=== PATIENT | female | born 1975 | race Caucasian/White ===

== ENCOUNTER → 2017-12-23 08:24 | Outpatient (POV) | payer MEDICAID, SELFPAY | PROVIDERS: PCP Nurse Practitioner Family; Visit Provider Dentist | DX: Z00.00 Encounter for general adult medical examination without abnormal findings (principal) ==

== ENCOUNTER → 2018-02-18 14:13 | Outpatient (CLI) | payer MEDICAID, SELFPAY ==
--- NOTE | 2018-02-18 14:17 | XR_ITS ---
EXAM: XR cervical spine 5V HISTORY: Neck pain ITS.REASON: pain ORDERING PHYSICIAN: Sallie Haney PATIENT AGE: 42 years COMPARISON: FINDINGS: Normal alignment. No fracture or dislocation. No lytic or blastic change. No significant degenerative change. The disc spaces are preserved. There is minimal mid cervical curvature convex right with slight head tilt toward the left. No evidence of cervical rib. IMPRESSION: Minimal mid cervical curvature convex right could be seen with mild muscle spasm. Otherwise negative cervical spine
== END ==
PROVIDERS: PCP Emergency Medicine; Visit Provider Nurse Practitioner Family
DX: M54.2 Cervicalgia (principal)
CPT/HCPCS: 72050

== ENCOUNTER → 2018-05-03 15:51 | Outpatient (CLI) | payer MEDICAID, SELFPAY ==
[2018-05-03 17:15] LABS: Basophils % 0.1 % (0.1-2.0); Eosinophils % 0.8 % (0.1-12.0); Hematocrit 36.1 % (37.0-47.0); Hemoglobin 11.1 g/dL (12.2-16.2); Lymphocytes # 1.6 K/mm3 (0.7-4.5); Lymphocytes % 35.1 K/mm3 (10-50); Mean Corpuscular HGB Conc 30.8 g/dL (31.8-35.4); Mean Corpuscular Hemoglobin 26.2 pg (27.0-31.2); Mean Corpuscular Volume 85.1 fl (81-99); Mean Platelet Volume 7.7 fl (7.4-10.4); Monocytes # 0.2 K/mm3 (0.1-1.0); Monocytes % 3.3 % (1.7-9.3); Neutrophils # 2.8 K/mm3 (1.8-7.8); Neutrophils % 60.7 % (37.0-80.0); Platelet Count 371 K/mm3 (142-424); Red Blood Count 4.24 M/mm3 (4.20-5.40); Red Cell Distribution Width 12.8 % (11.5-17.5); White Blood Count 4.6 K/mm3 (4.8-10.8)
[2018-05-07 18:28] LABS: RA Latex Turbid. <10.0 IU/mL (0.0-13.9)
[2018-05-09 11:13] LABS: Anti-Jo-1 <0.2 AI (0.0-0.9); Anti-Smith Antibody <0.2 AI (0.0-0.9); Antichromatin Antibodies <0.2 AI (0.0-0.9); Antiscleroderma-70 Antibodies <0.2 AI (0.0-0.9); RNP Antibodies <0.2 AI (0.0-0.9); Sjogren's Anti-SS-A <0.2 AI (0.0-0.9); Sjogren's Anti-SS-B <0.2 AI (0.0-0.9)
[2018-05-11 06:14] LABS: Anti-Centromere B Antibodies <0.2 AI (0.0-0.9); Anti-Cyclic Citrullinated Pept 5 units (0-19); Anti-DNA (DS) Ab Qn 2 IU/mL (0-9)
== END ==
PROVIDERS: Visit Provider Physician Assistant
DX: M89.8X9 Other specified disorders of bone, unspecified site (principal); R53.83 Other fatigue; L65.9 Nonscarring hair loss, unspecified
CPT/HCPCS: 36415; 85025; 86200; 86225; 86235; 86431

== ENCOUNTER → 2018-05-10 12:35 | Outpatient (CLI) | payer MEDICAID, SELFPAY ==
[2018-05-10 13:46] LABS: Erythrocyte Sedimentation Rate 24 mm/hr (0-20)
[2018-05-10 14:20] LABS: Alanine Aminotransferase 19 U/L (12-78); Albumin Level 3.4 gm/dL (3.4-5.0); Albumin/Globulin Ratio 1.1 (1.1-1.8); Alkaline Phosphatase 68 U/L (46-116); Anion Gap 13.1 mEq/L (5-15); Aspartate Amino Transferase 13 U/L (15-37); Bilirubin,Total 0.3 mg/dL (0.2-1.0); Blood Urea Nitrogen 9 mg/dL (7-18); C-Reactive Protein 1.3 mg/L (0.0-0.9); Calcium 8.3 mg/dL (8.5-10.1); Carbon Dioxide 28 mmol/L (21.0-32.0); Chloride 105 mmol/L (98-107); Creatinine,Serum 0.68 mg/dL (0.55-1.02); Estimated Glomerular Filt Rate 94 ml/min (>60); GFR (African American) 114 ML/MIN (>60); Globulin 3.2 gm/dl (1.3-3.2); Glucose 82 mg/dL (74-106); Potassium 4.1 mmoL/L (3.5-5.1); Sodium 142 mmol/L (136-145); Total Protein,Serum 6.6 gm/dL (6.4-8.2)
[2018-05-11 17:29] LABS: PTT-LA 34.3 sec (0.0-51.9); dRVVT 40.7 sec (0.0-47.0)
[2018-05-13 06:33] LABS: Lupus Reflex Interpretation Comment: (.)
== END ==
PROVIDERS: Visit Provider Physician Assistant
DX: M89.8X9 Other specified disorders of bone, unspecified site (principal); L65.9 Nonscarring hair loss, unspecified; R53.83 Other fatigue
CPT/HCPCS: 36415; 80053; 85613; 85651; 86140

== ENCOUNTER → 2018-05-31 15:38 | Outpatient (REF) | payer MEDICAID, SELFPAY ==
[2018-05-31 18:15] LABS: Erythrocyte Sedimentation Rate 17 mm/hr (0-20)
[2018-05-31 18:46] LABS: C-Reactive Protein 0.4 mg/L (0.0-0.9)
[2018-06-02 10:13] LABS: RA Latex Turbid. <10.0 IU/mL (0.0-13.9)
[2018-06-02 14:16] LABS: Anti-Jo-1 <0.2 AI (0.0-0.9); Anti-Smith Antibody <0.2 AI (0.0-0.9); Antichromatin Antibodies <0.2 AI (0.0-0.9); Antiscleroderma-70 Antibodies <0.2 AI (0.0-0.9); RNP Antibodies <0.2 AI (0.0-0.9); Sjogren's Anti-SS-A <0.2 AI (0.0-0.9); Sjogren's Anti-SS-B <0.2 AI (0.0-0.9)
[2018-06-03 09:09] LABS: Anti-Centromere B Antibodies <0.2 AI (0.0-0.9); Anti-DNA (DS) Ab Qn 2 IU/mL (0-9)
== END ==
LOC: LAB 15:38
PROVIDERS: Visit Provider Physician Assistant
DX: G89.29 Other chronic pain (principal); M51.36 Other intervertebral disc degeneration, lumbar region; M54.16 Radiculopathy, lumbar region; Z98.1 Arthrodesis status
CPT/HCPCS: 85651; 86140; 86225; 86235; 86431

== ENCOUNTER → 2018-08-29 14:56 | Outpatient (CLI) | payer MEDICAID, SELFPAY ==
--- NOTE | 2018-08-29 14:58 | US_ITS ---
US transvaginal HISTORY: Dysfunctional uterine bleeding ITS.REASON: US for Heavy Bleeding ORDERING PHYSICIAN: John Garcia MD PATIENT AGE: 43 years Comparison: None FINDINGS: The uterus is 8.4 x 4 x 4.5 cm with a combined endometrial thickness of 2 mm. There are nabothian cysts present. There is an area of slight increased echogenicity along the posterior aspect of the body the uterus at 1 cm and may be due to small fibroid. The right ovary is 27 x 23 mm. The left ovary is 22 x 13 mm. There are small bilateral ovarian follicles. No cul-de-sac fluid. IMPRESSION: Small fibroid within the uterus otherwise negative pelvic ultrasound
== END ==
PROVIDERS: PCP Physician Assistant; Visit Provider Nurse Practitioner Obstetrics & Gynecology
DX: N92.0 Excessive and frequent menstruation with regular cycle (principal); N93.9 Abnormal uterine and vaginal bleeding, unspecified
CPT/HCPCS: 76830

== ENCOUNTER → 2018-09-01 18:08 | Outpatient (CLI) | payer MEDICAID, SELFPAY ==
[2018-09-01 19:13] LABS: Basophils % 0.4 % (0.1-2.0); Eosinophils # 0.1 K/mm3 (0.0-0.4); Hemoglobin 12.1 g/dL (12.2-16.2); Lymphocytes # 1.7 K/mm3 (0.7-4.5); Lymphocytes % 46.6 % (10-50); Mean Corpuscular HGB Conc 32.7 g/dL (31.8-35.4); Mean Corpuscular Hemoglobin 28.4 pg (27.0-31.2); Mean Corpuscular Volume 86.9 fl (81-99); Mean Platelet Volume 7.4 fl (7.4-10.4); Monocytes # 0.1 K/mm3 (0.1-1.0); Monocytes % 3.8 % (1.7-9.3); Neutrophils # 1.7 K/mm3 (1.8-7.8); Neutrophils % 47.1 % (37.0-80.0); Platelet Count 318 K/mm3 (142-424); Red Blood Count 4.26 M/mm3 (4.20-5.40); Red Cell Distribution Width 13.4 % (11.5-17.5); White Blood Count 3.7 K/mm3 (4.8-10.8)
[2018-09-01 20:51] LABS: Alanine Aminotransferase 21 U/L (12-78); Albumin Level 3.7 gm/dL (3.4-5.0); Albumin/Globulin Ratio 1.2 (1.1-1.8); Alkaline Phosphatase 64 U/L (46-116); Anion Gap 14.1 mEq/L (5-15); Aspartate Amino Transferase 14 U/L (15-37); Bilirubin,Total 0.5 mg/dL (0.2-1.0); Blood Urea Nitrogen 13 mg/dL (7-18); Calcium 8.6 mg/dL (8.5-10.1); Carbon Dioxide 29 mmol/L (21.0-32.0); Chloride 101 mmol/L (98-107); Chol/HDL Ratio 6.6 (1-3.5); Cholesterol 232 mg/dL (140-200); Creatinine,Serum 0.62 mg/dL (0.55-1.02); Estimated Glomerular Filt Rate 105 ml/min (>60); GFR (African American) 127 ML/MIN (>60); Globulin 3.2 gm/dl (1.3-3.2); Glucose 78 mg/dL (74-106); HDL Cholesterol 35 mg/dL (29-89); LDL Cholesterol 159 mg/dL (0-130); Potassium 4.1 mmoL/L (3.5-5.1); Sodium 140 mmol/L (136-145); T4 (Thyroxine) 12.8 ug/dl (4.7-13.3); Thyroid Stimulating Hormone 1.08 uIU/ml (0.358-3.740); Total Protein,Serum 6.9 gm/dL (6.4-8.2); Triglycerides 191 mg/dL (30-200); VLDL Cholesterol 38 mg/dL (0-40)
[2018-09-05 11:15] LABS: Folate >20.0 ng/mL (>3.0); Vitamin B12 1171 pg/mL (232-1245); Vitamin D 25 Hydroxy 36.9 ng/mL (30.0-100.0)
== END ==
PROVIDERS: Visit Provider Physician Assistant
DX: R41.3 Other amnesia (principal); N64.3 Galactorrhea not associated with childbirth
CPT/HCPCS: 80053; 80061; 82607; 82652; 82746; 84146; 84436; 84443; 85025

== ENCOUNTER → 2018-09-07 10:12 | Outpatient (CLI) | payer MEDICAID, SELFPAY ==
[2018-09-07 11:36] LABS: Urine Pregnancy, HCG Qual. Negative (Negative)
[2018-09-07 13:46] LABS: Anion Gap 10.6 mEq/L (5-15); Blood Urea Nitrogen 13 mg/dL (7-18); Calcium 8.6 mg/dL (8.5-10.1); Carbon Dioxide 31 mmol/L (21.0-32.0); Chloride 103 mmol/L (98-107); Creatinine,Serum 0.67 mg/dL (0.55-1.02); Estimated Glomerular Filt Rate 96 ml/min (>60); GFR (African American) 116 ML/MIN (>60); Glucose 92 mg/dL (74-106); Potassium 3.6 mmoL/L (3.5-5.1); Sodium 141 mmol/L (136-145)
[2018-09-07 14:52] LABS: Basophils % 0.5 % (0.1-2.0); Eosinophils # 0.1 K/mm3 (0.0-0.4); Eosinophils % 2.6 % (0.1-12.0); Hemoglobin 11.8 g/dL (12.2-16.2); Lymphocytes # 2.4 K/mm3 (0.7-4.5); Lymphocytes % 48.3 % (10-50); Mean Corpuscular HGB Conc 31.7 g/dL (31.8-35.4); Mean Corpuscular Hemoglobin 28.4 pg (27.0-31.2); Mean Corpuscular Volume 89.5 fl (81-99); Mean Platelet Volume 7.4 fl (7.4-10.4); Monocytes # 0.2 K/mm3 (0.1-1.0); Monocytes % 3.9 % (1.7-9.3); Neutrophils # 2.2 K/mm3 (1.8-7.8); Neutrophils % 44.7 % (37.0-80.0); Platelet Count 341 K/mm3 (142-424); Red Blood Count 4.14 M/mm3 (4.20-5.40); Red Cell Distribution Width 13.5 % (11.5-17.5); White Blood Count 4.9 K/mm3 (4.8-10.8)
== END ==
PROVIDERS: Visit Provider Nurse Practitioner Obstetrics & Gynecology
DX: Z01.812 Encounter for preprocedural laboratory examination (principal); N92.0 Excessive and frequent menstruation with regular cycle
CPT/HCPCS: 36415; 80048; 81025; 85025

== ENCOUNTER → 2019-08-14 13:50 | Outpatient (CLI) | payer MEDICAID, SELFPAY ==
[2019-08-14 14:26] LABS: Basophils % 0.6 % (0.1-2.0); Eosinophils # 0.1 K/mm3 (0.0-0.4); Eosinophils % 2.2 % (0.1-12.0); Hematocrit 41.1 % (37.0-47.0); Hemoglobin 13.5 g/dL (12.2-16.2); Lymphocytes # 1.9 K/mm3 (0.7-4.5); Lymphocytes % 43.4 % (10-50); Mean Corpuscular HGB Conc 32.9 g/dL (31.8-35.4); Mean Corpuscular Volume 91.4 fl (81-99); Mean Platelet Volume 8.3 fl (7.4-10.4); Monocytes # 0.2 K/mm3 (0.1-1.0); Monocytes % 4.2 % (1.7-9.3); Neutrophils # 2.1 K/mm3 (1.8-7.8); Neutrophils % 49.5 % (37.0-80.0); Platelet Count 289 K/mm3 (142-424); Red Cell Distribution Width 12.8 % (11.5-17.5); White Blood Count 4.3 K/mm3 (4.8-10.8)
[2019-08-14 14:39] LABS: Alanine Aminotransferase 27 U/L (12-78); Albumin/Globulin Ratio 1.3 (1.1-1.8); Alkaline Phosphatase 71 U/L (46-116); Anion Gap 11.8 mEq/L (5-15); Aspartate Amino Transferase 21 U/L (15-37); Bilirubin,Total 0.4 mg/dL (0.2-1.0); Blood Urea Nitrogen 6 mg/dL (7-18); Calcium 8.8 mg/dL (8.5-10.1); Carbon Dioxide 29 mmol/L (21.0-32.0); Chloride 102 mmol/L (98-107); Chol/HDL Ratio 4.4 (1-3.5); Cholesterol 203 mg/dL (140-200); Creatinine,Serum 0.71 mg/dL (0.55-1.02); Estimated Glomerular Filt Rate 89 ml/min (>60); GFR (African American) 108 ML/MIN (>60); Glucose 96 mg/dL (74-106); HDL Cholesterol 46 mg/dL (29-89); LDL Cholesterol 130 mg/dL (0-130); Potassium 3.8 mmoL/L (3.5-5.1); Sodium 139 mmol/L (136-145); T4 (Thyroxine) 9.5 ug/dl (4.7-13.3); Thyroid Stimulating Hormone 3.75 uIU/ml (0.358-3.740); Triglycerides 137 mg/dL (30-200); VLDL Cholesterol 27 mg/dL (0-40)
[2019-08-14 15:59] LABS: Erythrocyte Sedimentation Rate 11 mm/hr (0-20)
[2019-08-14 21:05] LABS: C-Reactive Protein < 0.2 mg/dL (0.0-0.9)
[2019-08-15 05:07] LABS: RA Latex Turbid. <10.0 IU/mL (0.0-13.9)
[2019-08-15 13:00] LABS: FSH 16.4 mIU/mL (.); LH 13.4 mIU/mL (.); Progesterone 0.4 ng/mL (.); Thyroid Peroxidase Antibodies 11 IU/mL (0-34)
[2019-08-15 14:10] LABS: Anti-Centromere B Antibodies <0.2 AI (0.0-0.9); Anti-Jo-1 <0.2 AI (0.0-0.9); Anti-Smith Antibody <0.2 AI (0.0-0.9); Antichromatin Antibodies <0.2 AI (0.0-0.9); Antiscleroderma-70 Antibodies <0.2 AI (0.0-0.9); RNP Antibodies <0.2 AI (0.0-0.9); Sjogren's Anti-SS-A <0.2 AI (0.0-0.9); Sjogren's Anti-SS-B <0.2 AI (0.0-0.9)
[2019-08-16 07:22] LABS: Anti-Cyclic Citrullinated Pept 7 units (0-19); Anti-DNA (DS) Ab Qn 1 IU/mL (0-9); Thyroid Stimulating Immunoglob <0.10 IU/L (0.00-0.55)
[2019-08-17 16:07] LABS: Estrogen 72 pg/mL (.)
== END ==
PROVIDERS: Visit Provider Physician Assistant
DX: M25.50 Pain in unspecified joint (principal); N64.4 Mastodynia; R53.83 Other fatigue; R68.2 Dry mouth, unspecified; R68.89 Other general symptoms and signs
CPT/HCPCS: 80053; 80061; 82652; 82672; 83001; 83002; 84144; 84436; 84443; 84445; 85025; 85651; 86140; 86200; 86225; 86235; 86376; 86431

== ENCOUNTER → 2019-11-29 18:32 | Outpatient (CLI) | payer MEDICAID, SELFPAY ==
[2019-11-29 18:54] LABS: Basophils % 0.6 % (0.1-2.0); Eosinophils # 0.1 K/mm3 (0.0-0.4); Eosinophils % 1.1 % (0.1-12.0); Hematocrit 43.1 % (37.0-47.0); Hemoglobin 13.8 g/dL (12.2-16.2); Lymphocytes # 2.6 K/mm3 (0.7-4.5); Mean Corpuscular Hemoglobin 29.1 pg (27.0-31.2); Mean Platelet Volume 7.6 fl (7.4-10.4); Monocytes # 0.3 K/mm3 (0.1-1.0); Monocytes % 3.9 % (1.7-9.3); Neutrophils # 4.7 K/mm3 (1.8-7.8); Neutrophils % 60.4 % (37.0-80.0); Platelet Count 330 K/mm3 (142-424); Red Blood Count 4.73 M/mm3 (4.20-5.40); Red Cell Distribution Width 12.8 % (11.5-17.5); White Blood Count 7.7 K/mm3 (4.8-10.8)
[2019-11-29 21:10] LABS: Alanine Aminotransferase 24 U/L (9-52); Albumin/Globulin Ratio 1.3 (1.1-1.8); Alkaline Phosphatase 75 U/L (46-116); Aspartate Amino Transferase 17 U/L (15-37); Bilirubin,Total 0.4 mg/dL (0.2-1.0); Blood Urea Nitrogen 6 mg/dL (7-18); Calcium 9.2 mg/dL (8.5-10.1); Carbon Dioxide 30 mmol/L (21.0-32.0); Chloride 102 mmol/L (98-107); Cholesterol 239 mg/dL (140-200); Creatinine,Serum 0.69 mg/dL (0.55-1.02); Estimated Glomerular Filt Rate 92 ml/min (>60); GFR (African American) 111 ML/MIN (>60); Globulin 3.2 gm/dl (1.3-3.2); Glucose 67 mg/dL (74-106); HDL Cholesterol 60 mg/dL (29-89); LDL Cholesterol 157 mg/dL (0-130); Sodium 142 mmol/L (137-145); T4 (Thyroxine) 9.6 ug/dl (4.7-13.3); Thyroid Stimulating Hormone 1.13 uIU/ml (0.358-3.740); Total Protein,Serum 7.2 g/dL (6.4-8.2); Triglycerides 108 mg/dL (30-200); VLDL Cholesterol 22 mg/dL (0-40)
== END ==
PROVIDERS: Visit Provider Physician Assistant
DX: E03.9 Hypothyroidism, unspecified (principal); M25.50 Pain in unspecified joint
CPT/HCPCS: 80053; 80061; 84436; 84443; 85025

== ENCOUNTER → 2020-07-11 18:26 | Outpatient (CLI) | payer MEDICAID, SELFPAY ==
[2020-07-11 18:56] LABS: Basophils % 0.4 % (0.1-2.0); Eosinophils # 0.1 K/mm3 (0.0-0.4); Eosinophils % 2.2 % (0.1-12.0); Hematocrit 37.5 % (37.0-47.0); Hemoglobin 13.4 g/dL (12.2-16.2); Lymphocytes # 2.1 K/mm3 (0.7-4.5); Mean Corpuscular HGB Conc 35.7 g/dL (31.8-35.4); Mean Corpuscular Hemoglobin 30.4 pg (27.0-31.2); Mean Corpuscular Volume 85.1 fl (81-99); Mean Platelet Volume 8.3 fl (7.4-10.4); Monocytes # 0.3 K/mm3 (0.1-1.0); Monocytes % 5.8 % (1.7-9.3); Neutrophils # 2.5 K/mm3 (1.8-7.8); Neutrophils % 49.7 % (37.0-80.0); Platelet Count 309 K/mm3 (142-424); Red Cell Distribution Width 12.8 % (11.5-17.5); White Blood Count 4.9 K/mm3 (4.8-10.8)
[2020-07-11 19:03] LABS: Alanine Aminotransferase 16 U/L (12-78); Albumin Level 4.3 g/dl (3.5-5.0); Albumin/Globulin Ratio 1.5 (1.1-1.8); Alkaline Phosphatase 77 U/L (38-126); Anion Gap 11.4 mEq/L (5-15); Aspartate Amino Transferase 30 U/L (14-36); Bilirubin,Total 0.8 mg/dl (0.2-1.3); Blood Urea Nitrogen 10 mg/dl (7-17); Calcium 9.4 mg/dl (8.4-10.2); Carbon Dioxide 30 mmol/L (22.0-30.0); Chloride 101 mmol/L (98-107); Chol/HDL Ratio 4.9 (1-3.5); Cholesterol 219 mg/dl (140-200); Estimated Glomerular Filt Rate 108 ml/min (>60); GFR (African American) 130 ML/MIN (>60); Globulin 2.8 g/dL (1.3-3.2); Glucose 87 mg/dl (74-100); HDL Cholesterol 45 mg/dl (40-60); Potassium 4.4 mmoL/L (3.5-5.1); Sodium 138 mmol/L (136-145); Total Protein,Serum 7.1 g/dl (6.3-8.2); Triglycerides 130 mg/dl (30-150); VLDL Cholesterol 26 mg/dL (0-40)
[2020-07-11 19:15] LABS: Direct LDL Cholesterol 149.71 mg/dL (100-129)
[2020-07-11 19:21] LABS: 25-OH Vitamin D, Total 54.6 ng/mL (30-100)
[2020-07-11 19:35] LABS: Thyroid Stimulating Hormone 0.54 uIU/mL (0.465-4.68)
== END ==
PROVIDERS: Visit Provider Physician Assistant
DX: R53.83 Other fatigue (principal)
CPT/HCPCS: 80053; 80061; 82306; 84443; 85025

== ENCOUNTER → 2020-08-05 16:12 | Outpatient (CLI) | payer MEDICAID, SELFPAY ==
[2020-08-05 17:21] LABS: Coronavirus 19 IgG Antibody Negative (Negative); Coronavirus 19 IgM Antibody Negative (Negative)
== END ==
PROVIDERS: PCP Physician Assistant; Visit Provider Physician Assistant
DX: Z01.818 Encounter for other preprocedural examination (principal); G47.33 Obstructive sleep apnea (adult) (pediatric); G47.19 Other hypersomnia; R06.83 Snoring
CPT/HCPCS: 36415; 86328; 95810

== ENCOUNTER → 2020-12-18 18:17 | Outpatient (CLI) | payer MEDICAID, SELFPAY ==
[2020-12-18 21:33] LABS: Coronavirus 19 IgG Antibody Negative (Negative); Coronavirus 19 IgM Antibody Negative (Negative)
== END ==
PROVIDERS: Visit Provider Anesthesiology Pain Medicine
DX: Z01.818 Encounter for other preprocedural examination (principal); Z20.822 Contact with and (suspected) exposure to COVID-19
CPT/HCPCS: 36415; 86328

== ENCOUNTER → 2021-05-02 13:39 | Outpatient (CLI) | payer MEDICAID, SELFPAY | PROVIDERS: Visit Provider Nurse Practitioner Family | DX: N39.0 Urinary tract infection, site not specified (principal) | CPT/HCPCS: 87086 ==

== ENCOUNTER → 2021-07-10 20:43 | Outpatient (CLI) | payer MEDICAID, SELFPAY | PROVIDERS: Visit Provider Nurse Practitioner Family | DX: Z20.822 Contact with and (suspected) exposure to COVID-19 (principal) | CPT/HCPCS: C9803; U0003; U0005 ==

== ENCOUNTER 2021-11-10 21:11 | Emergency (ER) | payer MEDICAID, SELFPAY ==
[2021-11-10 21:11] VITALS: BP 133/85; PULSE 82; RESP 14; TEMP 37.1; O2SAT 100; BMI 26.4
--- NOTE | 2021-11-10 21:13 | ECG_ITS ---
APPROVED REPORT Exam: Resting ECG HR:79 bpm ECG Measurements Heart Rate 79 AXES WA 144 P 31 QRSd 82 QRS 11 QT 371 T 45 QTc 405 Conclusion SINUS RHYTHM LOW QRS VOLTAGE IN PRECORDIAL LEADS [QRS DEFLECTION < 1.0 mV IN CHEST LEADS] BORDERLINE ECG UNCONFIRMED REPORT Electronically signed by : Joel Velez MD 11/11/2021 12:11:47
--- NOTE | 2021-11-10 21:21 | XR_ITS ---
PROCEDURE INFORMATION: Exam: XR Chest Exam date and time: 11/10/2021 9:21 PM Age: 46 years old Clinical indication: Sternal or substernal pain; Additional info: Chest pain TECHNIQUE: Imaging protocol: XR of the chest. Views: 2 views. COMPARISON: CR CXR2V XR chest 2V 02/08/2018 5:54 PM FINDINGS: Lungs: Unremarkable. No consolidation. Pleural spaces: Unremarkable. No pleural effusion. No pneumothorax. Heart/Mediastinum: Unremarkable. No cardiomegaly. Bones/joints: Pectus excavatum deformity is suspect. Osseous structures are otherwise unremarkable. IMPRESSION: No evidence of acute intrathoracic disease.
[2021-11-10 21:29] LABS: Influenza A, PCR Not Detected (NotDetected); Influenza B, PCR Not Detected (NotDetected)
[2021-11-10 21:30] VITALS: BP 116/85; PULSE 80; RESP 15; O2SAT 99
[2021-11-10 21:31] LABS: Basophils # 0.1 K/mm3 (0-0.2); Basophils % 1.4 % (0.1-2.0); Eosinophils % 0.9 % (0.1-12.0); Hematocrit 44.7 % (37.0-47.0); Hemoglobin 14.4 g/dL (12.2-16.2); Lymphocytes # 1.9 K/mm3 (0.7-4.5); Lymphocytes % 55.1 % (10-50); Mean Corpuscular HGB Conc 32.1 g/dL (31.8-35.4); Mean Corpuscular Hemoglobin 29.4 pg (27.0-31.2); Mean Corpuscular Volume 91.4 fl (81-99); Mean Platelet Volume 7.9 fl (7.4-10.4); Monocytes # 0.2 K/mm3 (0.1-1.0); Monocytes % 5.1 % (1.7-9.3); Neutrophils # 1.3 K/mm3 (1.8-7.8); Neutrophils % 37.5 % (37.0-80.0); Platelet Count 249 K/mm3 (142-424); Red Blood Count 4.89 M/mm3 (4.20-5.40); White Blood Count 3.5 K/mm3 (4.8-10.8)
[2021-11-10 21:37] LABS: MANUAL DIFFERENTIAL MANUAL DIFFERENTIAL (MANUAL DIFF)
--- NOTE | 2021-11-10 21:37 | PC.NURSE ---
Pt gone to rad
--- NOTE | 2021-11-10 21:40 | PC.NURSE ---
Pt back from rad
[2021-11-10 21:42] LABS: Alanine Aminotransferase 19 U/L (12-78); Albumin Level 5.3 g/dl (3.5-5.0); Alkaline Phosphatase 106 U/L (38-126); Anion Gap 16.6 mEq/L (5-15); Aspartate Amino Transferase 43 U/L (14-36); Bilirubin,Direct 0.1 mg/dl (0.0-0.4); Bilirubin,Indirect 0.2 mg/dL (0.0-0.9); Bilirubin,Total 0.3 mg/dl (0.2-1.3); Bilirubin,Unconjugated 0.2 mg/dL (0.0-1.1); Blood Urea Nitrogen 7 mg/dl (7-17); Calcium 9.6 mg/dl (8.4-10.2); Carbon Dioxide 30 mmol/L (22.0-30.0); Chloride 94 mmol/L (98-107); Creatinine Clearance Estimated 100 mL/min (50-200); Estimated Glomerular Filt Rate 90 ml/min (>60); GFR (African American) 109 ML/MIN (>60); Glucose 89 mg/dl (74-100); Potassium 3.6 mmoL/L (3.5-5.1); Sodium 137 mmol/L (136-145); Total Protein,Serum 9.1 g/dl (6.3-8.2)
[2021-11-10 21:47] LABS: C-Reactive Protein 5.2 mg/L (0-4)
[2021-11-10 21:52] LABS: Coronavirus 19, PCR Detected (NotDetected); Lymphocytes % 56 % (10-50); Monocytes % 4 % (2-9); Neutrophils % 40 % (42-76); Platelet Estimate Normal; RBC Morphology Normal; Total Cells Counted 100
[2021-11-10 21:59] LABS: Troponin I < 0.01 ng/ml (0.00-0.034)
[2021-11-10 22:00] VITALS: BP 116/85; PULSE 81; RESP 12; O2SAT 97
[2021-11-10 22:01] LABS: Procalcitonin 0.061 ng/mL (0.0-2.0)
[2021-11-10 22:04] LABS: Erythrocyte Sedimentation Rate 11 mm/hr (0-20)
[2021-11-10 22:30] VITALS: BP 106/73; PULSE 76; RESP 13; O2SAT 97
--- NOTE | 2021-11-10 23:30 | HMH.EDCP ---
ED Disposition Clinical Impression: Atypical chest pain, COVID-19 Disposition: Home, Self-Care Condition on Discharge: Good Instructions: DI for COVID-19 (Suspected or Confirmed ) Additional Instructions: use meds and see pcp for follow up Prescriptions: dexAMETHasone [Decadron] 6 mg PO DAILY #6 tab Transmission Status: Pending to [facility] #[id number] Referrals: Provider,Referral, [Referring] - - Critical Care Critical Care Time: No Attestation: On 11/10/21, the high probability of a clinically significant, sudden or life threatening deterioration of the following system(s) required my full and direct attention, intervention and personal management. The time I documented below is in addition to time spent performing reported procedures but includes the following listed in this critical care notation. Medical Decision Making - Medical Records Medical records reviewed: Yes: I reviewed the patient's medical records. - Lorenzo Inquiry Pt receiving controlled substance: No Vital Signs: 11/10/21 21:11 11/10/21 21:30 11/10/21 22:00 Temperature 98.7 F Temperature Source Oral Pulse Rate 80 81 Pulse Rate [Right Radial] 82 Respiratory Rate 14 15 12 Blood Pressure 116/85 116/85 Blood Pressure [Right Arm] 133/85 Blood Pressure Mean [Right Arm] 101 Blood Pressure Source [Right Arm] Automatic Cuff Blood Pressure Position [Right Arm] Sitting 02 Sat by Pulse Oximetry 100 99 97 Oxygen Delivery Method Room Air Room Air Room Air 11/10/21 22:30 Temperature Temperature Source Pulse Rate 76 Pulse Rate [Right Radial] Respiratory Rate 13 Blood Pressure 106/73 L Blood Pressure [Right Arm] Blood Pressure Mean [Right Arm] Blood Pressure Source [Right Arm] Blood Pressure Position [Right Arm] 02 Sat by Pulse Oximetry 97 Oxygen Delivery Method Room Air - Lab Data Lab results reviewed: Yes: I reviewed the patient's lab results. Lab Results 11/10/21 21:23: WBC 3.5 L, RBC 4.89, Hgb 14.4, Hct 44.7, MCV 91.4, MCH 29.4, MCHC 32.1, RDW 13.0, Plt Count 249, MPV 7.9, Neut % (Auto) 37.5, Lymph % (Auto) 55.1 H, Mccone % (Auto) 5.1, Eos % (Auto) 0.9, Baso % (Auto) 1.4, Neut # (Auto) 1.3 L, Lymph # (Auto) 1.9, Mccone # (Auto) 0.2, Eos # (Auto) 0.0, Baso # (Auto) 0.1, Total Counted 100, Neutrophils % (Manual) 40 L, Lymphocytes % (Manual) 56 H, Monocytes % (Manual) 4, Platelet Estimate Normal, RBC Morphology Normal, ESR 11 11/10/21 21:23: Sodium 137, Potassium 3.6, Chloride 94 L, Carbon Dioxide 30, Anion Gap 16.6 H, BUN 7, Creatinine 0.70, Estimated Creat Clear 100, Estimated GFR 90, Est GFR ( Amer) 109, Glucose 89, Calcium 9.6, Total Bilirubin 0.3, Direct Bilirubin 0.1, Conjugated Bilirubin 0.0, Indirect Bilirubin 0.2, Unconjugated Bilirubin 0.2, AST 43 H, ALT 19, Alkaline Phosphatase 106, Troponin I < 0.01, C-Reactive Protein 5.2 H, Total Protein 9.1 H D, Albumin 5.3 H, Procalcitonin 0.061 11/10/21 21:23: SARS-CoV-2 (PCR) Detected A, Influenza A Untype (PCR) Not detected, Influenza Type B (PCR) Not detected Result diagrams: 11/10/21 21:23 11/10/21 21:23 Orders (Tests/Meds): ED MEDICATIONS Generic Name Dose Route Start Last Admin Trade Name Freq PRN Reason Stop Dose Admin Sodium Chloride 1,000 mls @ 999 mls/hr 11/10/21 21:45 11/10/21 21:52 Sod Chlor 0.9% 1000ml Bag IV 11/10/21 22:45 999 mls/hr .Q1H1M SHERRELL Administration Discontinued Medications Generic Name Dose Route Start Last Admin Trade Name Freq PRN Reason Stop Dose Admin Dexamethasone Sodium Phosphate 10 mg 11/10/21 21:33 11/10/21 21:51 Dexamethasone 4mg/Ml 5ml Mdv IV 11/10/21 21:34 10 mg ONCE ONE Administration Ketorolac Tromethamine 30 mg 11/10/21 21:33 11/10/21 21:52 Ketorolac 30mg/Ml Vial IV 11/10/21 21:34 30 mg ONCE ONE Administration Ondansetron HCl 4 mg 11/10/21 21:33 11/10/21 21:52 Ondansetron 4mg/2ml Vial IV 11/10/21 21:34 4 mg ONCE ONE Administration ORDERS Ca
[2021-11-10 23:54] VITALS: BP 105/70; PULSE 76; RESP 20; TEMP 36.8; O2SAT 99
== END 2021-11-10 23:56 | disposition home or self-care (01) ==
PROVIDERS: Emergency Provider Emergency Medicine; PCP Physician Assistant
DX: U07.1 COVID-19 (principal); R07.89 Other chest pain
CPT/HCPCS: 71046; 80048; 80076; 84145; 84484; 85007; 85025; 85651; 86140; 93005; 96365; 96375; 99283; C9803; J2405; U0003; U0005

== ENCOUNTER → 2021-11-25 14:50 | Outpatient (CLI) | payer MEDICAID, SELFPAY ==
--- NOTE | 2021-11-25 14:58 | XR_ITS ---
FINAL REPORT CLINICAL HISTORY: bilateral hand pain FINDINGS: RIGHT HAND Three views demonstrate no acute fracture or dislocation. The visualized joint spaces are normally aligned. The soft tissues are unremarkable. IMPRESSION: No acute bony abnormality. Reviewed, Interpreted and Dictated by Kalin Alvarez III, MD Transcribed by Lonnie Hernandez Authenticated by Kalin Alvarez III, MD on 11/25/2021 03:44:17 PM [facility]
--- NOTE | 2021-11-25 14:58 | XR_ITS ---
FINAL REPORT CLINICAL HISTORY: bilateral hand pain FINDINGS: LEFT HAND Three views demonstrate no acute fracture or dislocation. The visualized joint spaces are normally aligned. The soft tissues are unremarkable. IMPRESSION: No acute process. Reviewed, Interpreted and Dictated by Kalin Alvarez III, MD Transcribed by Lonnie Hernandez Authenticated by Kalin Alvarez III, MD on 11/25/2021 03:44:19 PM [facility]
[2021-11-25 22:00] LABS: Basophils # 0.1 K/mm3 (0-0.2); Basophils % 1.2 % (0.1-2.0); Eosinophils # 0.1 K/mm3 (0.0-0.4); Eosinophils % 1.5 % (0.1-12.0); Hematocrit 41.5 % (37.0-47.0); Hemoglobin 12.8 g/dL (12.2-16.2); Lymphocytes # 1.4 K/mm3 (0.7-4.5); Lymphocytes % 23.8 % (10-50); Mean Corpuscular HGB Conc 30.9 g/dL (31.8-35.4); Mean Corpuscular Hemoglobin 28.9 pg (27.0-31.2); Mean Corpuscular Volume 93.7 fl (81-99); Mean Platelet Volume 9.5 fl (7.4-10.4); Monocytes # 0.3 K/mm3 (0.1-1.0); Neutrophils % 68.5 % (37.0-80.0); Platelet Count 307 K/mm3 (142-424); Red Blood Count 4.43 M/mm3 (4.20-5.40); Red Cell Distribution Width 13.3 % (11.5-17.5); White Blood Count 5.9 K/mm3 (4.8-10.8)
[2021-11-25 22:11] LABS: Hemoglobin A1C 5.1 % (4.0-6.0)
[2021-11-25 22:22] LABS: Alanine Aminotransferase 18 U/L (12-78); Albumin Level 4.6 g/dl (3.5-5.0); Albumin/Globulin Ratio 1.8 (1.1-1.8); Alkaline Phosphatase 92 U/L (38-126); Aspartate Amino Transferase 33 U/L (14-36); Bilirubin,Total 0.5 mg/dl (0.2-1.3); Blood Urea Nitrogen 7 mg/dl (7-17); Calcium 9.6 mg/dl (8.4-10.2); Carbon Dioxide 32 mmol/L (22.0-30.0); Chloride 98 mmol/L (98-107); Chol/HDL Ratio 4.7 (1-3.5); Cholesterol 261 mg/dl (140-200); Estimated Glomerular Filt Rate 132 ml/min (>60); GFR (African American) 160 ML/MIN (>60); Globulin 2.6 g/dL (1.3-3.2); Glucose 93 mg/dl (74-100); HDL Cholesterol 55 mg/dl (40-60); Sodium 138 mmol/L (136-145); Total Protein,Serum 7.2 g/dl (6.3-8.2); Triglycerides 177 mg/dl (30-150); VLDL Cholesterol 35 mg/dL (0-40)
[2021-11-25 22:34] LABS: C-Reactive Protein 1.3 mg/L (0-4); Direct LDL Cholesterol 180.47 mg/dL (100-129)
[2021-11-25 22:39] LABS: Erythrocyte Sedimentation Rate 34 mm/hr (0-20)
[2021-11-25 22:48] LABS: 25-OH Vitamin D, Total 33.1 ng/mL (30-100)
[2021-11-25 22:56] LABS: Thyroid Stimulating Hormone 0.65 uIU/mL (0.465-4.68)
[2021-11-27 13:26] LABS: Anti-Centromere B Antibodies <0.2 AI (0.0-0.9); Anti-DNA (DS) Ab Qn 1 IU/mL (0-9); Anti-Jo-1 <0.2 AI (0.0-0.9); Anti-Smith Antibody <0.2 AI (0.0-0.9); Antichromatin Antibodies <0.2 AI (0.0-0.9); Antiscleroderma-70 Antibodies <0.2 AI (0.0-0.9); RNP Antibodies <0.2 AI (0.0-0.9); Sjogren's Anti-SS-A <0.2 AI (0.0-0.9); Sjogren's Anti-SS-B <0.2 AI (0.0-0.9)
[2021-11-27 15:28] LABS: RA Latex Turbid. <10.0 IU/mL (<14.0)
[2021-11-27 23:07] LABS: Anti-Cyclic Citrullinated Pept 4 units (0-19)
== END ==
PROVIDERS: PCP Physician Assistant; Visit Provider Physician Assistant
DX: E03.9 Hypothyroidism, unspecified (principal); E16.2 Hypoglycemia, unspecified; M79.641 Pain in right hand; M79.642 Pain in left hand
CPT/HCPCS: 73130; 80053; 80061; 82306; 83036; 84443; 85025; 85651; 86140; 86200; 86225; 86235; 86431

== ENCOUNTER → 2022-04-17 07:33 | Outpatient (CLI) | payer MEDICAID, SELFPAY ==
[2022-04-18 08:53] LABS: FSH 23.8 mIU/mL (.); LH 15.7 mIU/mL (.); Progesterone 0.3 ng/mL (.)
[2022-04-21 13:38] LABS: Anti-Centromere B Antibodies <0.2 AI (0.0-0.9); Anti-DNA (DS) Ab Qn 1 IU/mL (0-9); Anti-Jo-1 <0.2 AI (0.0-0.9); Anti-Smith Antibody <0.2 AI (0.0-0.9); Antichromatin Antibodies <0.2 AI (0.0-0.9); Antiscleroderma-70 Antibodies <0.2 AI (0.0-0.9); RNP Antibodies <0.2 AI (0.0-0.9); Sjogren's Anti-SS-A <0.2 AI (0.0-0.9); Sjogren's Anti-SS-B <0.2 AI (0.0-0.9)
[2022-04-22 16:12] LABS: Estrogen 223 pg/mL (.)
== END ==
PROVIDERS: PCP Physician Assistant; Visit Provider Physician Assistant
DX: H04.123 Dry eye syndrome of bilateral lacrimal glands (principal); R68.2 Dry mouth, unspecified
CPT/HCPCS: 82672; 83001; 83002; 84144; 86225; 86235

== ENCOUNTER 2022-05-23 16:08 | Emergency (ER) | payer MEDICAID, SELFPAY ==
[2022-05-23 16:20] VITALS: BP 114/77; PULSE 85; RESP 17; TEMP 36.9; O2SAT 99; BMI 24.0
--- NOTE | 2022-05-23 16:28 | HMH.EDUTC ---
[facility] Disposition Clinical Impression: Dog bite of calf Qualifiers: Encounter type: initial encounter Laterality: right Qualified Code(s): S81.851A - Open bite, right lower leg, initial encounter Disposition: Home, Self-Care Condition on Discharge: Good Instructions: DI for Dog Bite Additional Instructions: vaccine recommended, at day 0,3,7,14- discussed with pt call wednesday to out pt to schedule vaccines follow up with health department watch for s/s of infection if symptoms worsens or no improvement return or be seen in ed Prescriptions: Amoxicillin/Potassium Clav [Augmentin 500mg tab] 500 mg PO TID #30 tab Prescription Printed Referrals: Gita Rosales PA [Primary Care Provider] - Forms: Work/School Release Time of Disposition: 17:37 Medical Decision Making - Lorenzo Inquiry Pt receiving controlled substance: No Vital Signs: 05/23/22 16:20 05/23/22 16:48 Temperature 98.4 F 98.4 F Temperature Source Oral Pulse Rate 85 Pulse Rate [Right Brachial] 85 Respiratory Rate 17 17 Blood Pressure 114/77 Blood Pressure [Right Arm] 114/77 Blood Pressure Mean [Right Arm] 89 Blood Pressure Source [Right Arm] Automatic Cuff Blood Pressure Position [Right Arm] Sitting 02 Sat by Pulse Oximetry 99 Oxygen Delivery Method Room Air Orders (Tests/Meds): ED MEDICATIONS Discontinued Medications Generic Name Dose Route Start Last Admin Trade Name Freq PRN Reason Stop Dose Admin Rabies Immune Globulin 1,270 unit 05/23/22 17:11 Rabies Immune Globulin/Pf 300 Unit/Ml Vial IM 05/23/22 17:12 ONCE ONE Tetanus/Reduced Diphtheria/Acell Pertussis 0.5 ml 05/23/22 16:39 05/23/22 16:45 Tet/Diphth/Pert-Adult 0.5ml Syringe IM 05/23/22 16:40 0.5 ml .ONCE ONE Administration Medical Decision Narrative: long discussion with pt about the rabies vaccine and the treatment plan. pt will need to repeat vaccines at day 3,7,14 pt states she is planing to go out of state, again the importance of vaccines discussed with pt. 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 by RN): PATIENT C/O DOG BITE TO BACK OF RIGHT LEG LAST NIGHT HEENT Symptoms (Recalled from RN notes): No Resp Symptoms (Recalled from RN notes): No Skin Symptoms (Recalled from RN notes): Yes MS Symptoms (Recalled from RN notes): No Functional Status (Recalled from RN notes): WNL - History of Present Illness Provider Complaint: 46 yr old female presents for a dog bite to rt leg last pm. pt states she was getting out of her car when a small dog came out of nowhere and bit her 3 times on the left lower leg. pt states she has not seen the dog again and does not know who owns the dog. - Related Data Home Medications Medication Instructions Recorded Confirmed lidocaine 5 % topical patch 1 patch TOPICAL DAILY each 11/24/17 04/16/22 Previous Rx's Medication Instructions Recorded amitriptyline 10 mg tablet See Rx Instructions .ROUTE 05/02/21 .COMPLEX #90 tab fluticasone propionate 50 1 spray INTRANASAL QDAY #18.2 ml 11/11/21 mcg/actuation nasal spray,suspension levothyroxine 25 mcg tablet See Rx Instructions .ROUTE 04/01/22 .COMPLEX #90 tab modafinil 200 mg tablet 200 mg PO BID #180 tab 04/09/22 saliva substitute combo no.9 15 ml MM 5XD PRN #473 ml 04/23/22 Amoxicillin/Potassium Clav 500 mg PO TID #30 tab 05/23/22 [Augmentin 500mg tab] Allergies Allergy/AdvReac Type Severity Reaction Status Date / Time oxycodone [OXYCODONE] Allergy Unknown NA-NAUSEA/V Verified 04/16/22 15:59 OMITING tramado
[2022-05-23 16:48] VITALS: BP 114/77; PULSE 85; RESP 17; TEMP 36.9; O2SAT 99
--- NOTE | 2022-05-23 16:51 | PC.NURSE ---
ROMEL MOLINA IN WITH PT AT THIS TIME ALONG WITH ENMA RAYA
--- NOTE | 2022-05-23 17:25 | PC.NURSE ---
RABIES VACCINE GIVEN AT THIS TIME IN LEFT GLUTEUS PREET
== END 2022-05-23 17:35 | disposition home or self-care (01) ==
PROVIDERS: Emergency Provider Nurse Practitioner Family; PCP Physician Assistant
DX: S81.851A Open bite, right lower leg, initial encounter (principal); K21.9 Gastro-esophageal reflux disease without esophagitis; M54.16 Radiculopathy, lumbar region; M51.36 Other intervertebral disc degeneration, lumbar region; G89.29 Other chronic pain; G47.33 Obstructive sleep apnea (adult) (pediatric); F17.290 Nicotine dependence, other tobacco product, uncomplicated; Z79.51 Long term (current) use of inhaled steroids; Z88.6 Allergy status to analgesic agent; Z88.8 Allergy status to other drugs, medicaments and biological substances; Z98.1 Arthrodesis status; Z80.9 Family history of malignant neoplasm, unspecified; W54.0XXA Bitten by dog, initial encounter
CPT/HCPCS: 90375; 90471; 90715; 96372; 99213; G0463

== ENCOUNTER → 2022-12-22 20:13 | Outpatient (CLI) | payer MEDICAID, SELFPAY | PROVIDERS: PCP Physician Assistant; Visit Provider Physician Assistant | DX: G47.33 Obstructive sleep apnea (adult) (pediatric) (principal); R40.0 Somnolence; R06.83 Snoring | CPT/HCPCS: 95810 ==

== ENCOUNTER → 2023-02-01 16:15 | Outpatient (CLI) | payer MEDICAID, SELFPAY ==
[2023-02-01 17:01] LABS: Basophils % 0.5 % (0.1-2.0); Eosinophils # 0.1 K/mm3 (0.0-0.4); Eosinophils % 2.9 % (0.1-12.0); Hematocrit 40.7 % (37.0-47.0); Lymphocytes # 2.2 K/mm3 (0.7-4.5); Lymphocytes % 46.3 % (10-50); Mean Corpuscular Hemoglobin 28.2 pg (27.0-31.2); Mean Corpuscular Volume 88.1 fl (81-99); Mean Platelet Volume 7.9 fl (7.4-10.4); Monocytes # 0.3 K/mm3 (0.1-1.0); Monocytes % 5.4 % (1.7-9.3); Neutrophils # 2.2 K/mm3 (1.8-7.8); Platelet Count 291 K/mm3 (142-424); Red Blood Count 4.62 M/mm3 (4.20-5.40); Red Cell Distribution Width 13.2 % (11.5-17.5); White Blood Count 4.8 K/mm3 (4.8-10.8)
[2023-02-01 18:02] LABS: Erythrocyte Sedimentation Rate 13 mm/hr (0-20)
[2023-02-01 18:51] LABS: Alanine Aminotransferase 19 U/L (12-78); Albumin Level 4.3 g/dl (3.5-5.0); Albumin/Globulin Ratio 1.7 (1.1-1.8); Alkaline Phosphatase 72 U/L (38-126); Anion Gap 4.7 mEq/L (5-15); Aspartate Amino Transferase 28 U/L (14-36); Bilirubin,Total 0.5 mg/dl (0.2-1.3); Blood Urea Nitrogen 7 mg/dl (7-17); Calcium 8.6 mg/dl (8.4-10.2); Carbon Dioxide 32 mmol/L (22.0-30.0); Chloride 101 mmol/L (98-107); Estimated Glomerular Filt Rate 107 ml/min (>60); GFR (African American) 129 ML/MIN (>60); Globulin 2.5 g/dL (1.3-3.2); Glucose 61 mg/dl (74-100); Magnesium 1.8 mg/dl (1.6-2.3); Potassium 3.7 mmoL/L (3.5-5.1); Sodium 134 mmol/L (136-145); Total Protein,Serum 6.8 g/dl (6.3-8.2)
[2023-02-01 18:56] LABS: C-Reactive Protein 0.4 mg/L (0-4)
[2023-02-01 19:40] LABS: Vitamin B12 452 pg/mL (239-931)
[2023-02-03 11:15] LABS: RA Latex Turbid. <10.0 IU/mL (<14.0)
[2023-02-03 15:01] LABS: Anti-Centromere B Antibodies <0.2 AI (0.0-0.9); Anti-Cyclic Citrullinated Pept 2 units (0-19); Anti-DNA (DS) Ab Qn 1 IU/mL (0-9); Anti-Jo-1 <0.2 AI (0.0-0.9); Anti-Smith Antibody <0.2 AI (0.0-0.9); Antichromatin Antibodies <0.2 AI (0.0-0.9); Antiscleroderma-70 Antibodies <0.2 AI (0.0-0.9); RNP Antibodies <0.2 AI (0.0-0.9); Sjogren's Anti-SS-A <0.2 AI (0.0-0.9); Sjogren's Anti-SS-B <0.2 AI (0.0-0.9)
[2023-02-04 02:56] LABS: Lupus Reflex Interpretation Comment: (.); PTT-LA 37.5 sec (0.0-43.5); dRVVT 35.5 sec (0.0-47.0)
== END ==
PROVIDERS: PCP Physician Assistant; Visit Provider Physician Assistant
DX: M25.50 Pain in unspecified joint (principal); E53.8 Deficiency of other specified B group vitamins
CPT/HCPCS: 36415; 80053; 82607; 83735; 85025; 85613; 85651; 86140; 86200; 86225; 86235; 86431

== ENCOUNTER 2023-08-25 14:40 | Emergency (ER) | payer MEDICAID, SELFPAY ==
--- NOTE | 2023-08-25 14:55 | EXP.UTC ---
Discharge Plan Disposition Patient Disposition: Home, Self-Care Condition: Good Prescriptions Prescriptions: New gentamicin 0.3 % drops 1 drp ophthalmic (eye) Q4H 7 Days Qty: 5 0RF No Action levocetirizine 5 mg tablet 5 mg PO DAILY pilocarpine HCl 1 % drops 1 drp ophthalmic (eye) TID Qty: 15 2RF TheraTears 0.25 % dropperette 1 drp ophthalmic (eye) TID Qty: 30 0RF TheraTears Nutrition [phone] kz-ck-sa-unit capsule 1 cap PO DAILY Qty: 30 0RF meloxicam 7.5 mg tablet 7.5 mg PO QHS Qty: 30 2RF lidocaine 5 % adhesive patch,medicated 1 patch TOPICAL DAILY amitriptyline 10 mg tablet See Rx Instructions .ROUTE .COMPLEX Qty: 90 3RF Dose Instruction: take 1 tablet by mouth at bedtime for sleep Rx Instructions: take 1 tablet by mouth at bedtime for sleep fluticasone propionate 50 mcg/actuation spray,suspension 1 spray Intranasal QDAY Qty: 18.2 2RF Rx Instructions: administer into each nostril Biotene Dry Mouth Oral Rinse Mouthwash 15 ml MM 5XD PRN (Reason: dry mouth) Qty: 473 0RF Rx Instructions: swish for 15-30 secs , then spit out; do not swallow modafinil 200 mg tablet 200 mg PO BID Qty: 180 0RF Rx Instructions: Take 1 tablet by mouth every morning and 1 tablet at noon daily levothyroxine 25 mcg tablet See Rx Instructions .ROUTE .COMPLEX Qty: 90 0RF Dose Instruction: TAKE 1 TABLET BY MOUTH DAILY Rx Instructions: TAKE 1 TABLET BY MOUTH DAILY Referrals Follow up/Referrals: Gita Rosales PA [Primary Care Provider] - See instructions Clinical Impressions Clinical Impression: Bilateral conjunctivitis Instructions Patient Instructions: How to Instill Eye Drops, Conjunctivitis, DI for Conjunctivitis Discharge ED Provider: Nasim Robison [facility] General Stated complaint: eye irritation, vision blurred Time Seen by Provider: 08/25/23 14:55 History of Present Illness Provider Complaint: She states that for the past 1 week she has had bilateral (right > left) eye redness and irritation. She denies any eye injury or foreign body. Related Data Home Medications Medication Instructions Recorded Confirmed lidocaine 5 % topical patch 1 patch topical DAILY Pain 11/24/17 04/07/23 levocetirizine 5 mg tablet 5 mg PO DAILY 08/05/22 04/07/23 Previous Rx's Medication Instructions Recorded amitriptyline 10 mg tablet See Rx Instructions .Route 05/02/21 .COMPLEX #90 tabs fluticasone propionate 50 1 spray intranasal QDAY allergies 11/11/21 mcg/actuation nasal #18.2 mL spray,suspension saliva substitute combo no.9 15 ml mucous membrane 5XD PRN dry 04/23/22 (Biotene Dry Mouth Oral Rinse mouth #473 mL mouthwash) carboxymethylcellulose sodium 0.25 1 drp ophthalmic (eye) TID #30 ea 04/07/23 % eye drops in a dropperette (dBMEDx) meloxicam 7.5 mg tablet 7.5 mg PO QHS #30 tabs 04/07/23 omeg3-epa 150 mg-dha 100 mg-fish 1 cap PO DAILY #30 caps 04/07/23 oil-flaxseed oil 333 mg-E 61 unit cap (dBMEDx Nutrition) pilocarpine HCl 1 % eye drops 1 drp ophthalmic (eye) TID #15 mL 04/07/23 modafinil 200 mg tablet 200 mg PO BID #180 tabs 07/07/23 levothyroxine 25 mcg tablet See Rx Instructions .Route 07/22/23 .COMPLEX #90 tabs gentamicin 0.3 % eye drops 1 drp ophthalmic (eye) Q4H 7 days 08/25/23 #5 mL Allergies Allergy/AdvReac Type Severity Reaction Status Date / Time oxycodone [OXYCODONE] Allergy Unknown NA-NAUSEA/V Verified 04/07/23 16:19 OMITING tramadol [TRAMADOL] Allergy Unknown NA-NAUSEA/V Verified 04/07/23 16:19 OMITING PFSH PFSH Disclaimer: The information contained in this section may have been updated after the patient was seen, as this information can be updated by other users. Medical History Chronic pain Degenerative lumbar disc Hypothyroidism Lumbar radiculopathy, chronic Obstructive Sleep Apnea-Hypop
[2023-08-25 15:00] VITALS: BP 129/76; PULSE 78; RESP 18; TEMP 36.8; O2SAT 99; BMI 26.4
[2023-08-25 16:41] VITALS: BP 129/76; PULSE 78; RESP 18; TEMP 36.8; O2SAT 99
== END 2023-08-25 16:41 | disposition home or self-care (01) ==
PROVIDERS: Emergency Provider Nurse Practitioner Family; PCP Physician Assistant
DX: H10.33 Unspecified acute conjunctivitis, bilateral (principal); F17.290 Nicotine dependence, other tobacco product, uncomplicated; E03.9 Hypothyroidism, unspecified
CPT/HCPCS: 99212; 99214; G0463

== ENCOUNTER → 2023-08-30 15:06 | Outpatient (CLI) | payer MEDICAID, SELFPAY ==
[2023-08-30 16:03] LABS: Basophils % 0.6 % (0.1-2.0); Eosinophils # 0.1 K/mm3 (0.0-0.4); Eosinophils % 1.6 % (0.1-12.0); Hematocrit 38.1 % (37.0-47.0); Hemoglobin 13.2 g/dL (12.2-16.2); Lymphocytes # 1.7 K/mm3 (0.7-4.5); Lymphocytes % 46.4 % (10-50); Mean Corpuscular HGB Conc 34.6 g/dL (31.8-35.4); Mean Corpuscular Hemoglobin 31.2 pg (27.0-31.2); Mean Corpuscular Volume 90.2 fl (81-99); Mean Platelet Volume 8.3 fl (7.4-10.4); Monocytes # 0.2 K/mm3 (0.1-1.0); Monocytes % 5.5 % (1.7-9.3); Neutrophils # 1.7 K/mm3 (1.8-7.8); Neutrophils % 45.8 % (37.0-80.0); Platelet Count 252 K/mm3 (142-424); Red Blood Count 4.22 M/mm3 (4.20-5.40); Red Cell Distribution Width 12.6 % (11.5-17.5); White Blood Count 3.7 K/mm3 (4.8-10.8)
[2023-08-30 16:25] LABS: Erythrocyte Sedimentation Rate 13 mm/hr (0-20)
[2023-08-30 16:26] LABS: Alanine Aminotransferase 18 U/L (12-78); Albumin Level 4.5 g/dl (3.5-5.0); Albumin/Globulin Ratio 1.6 (1.1-1.8); Alkaline Phosphatase 68 U/L (38-126); Anion Gap 13.1 mEq/L (5-15); Aspartate Amino Transferase 31 U/L (14-36); Bilirubin,Total 0.4 mg/dl (0.2-1.3); Blood Urea Nitrogen 8 mg/dl (7-17); Calcium 9.2 mg/dl (8.4-10.2); Carbon Dioxide 31 mmol/L (22.0-30.0); Chloride 99 mmol/L (98-107); Estimated Glomerular Filt Rate 106 ml/min (>60); GFR (African American) 129 ML/MIN (>60); Globulin 2.9 g/dL (1.3-3.2); Glucose 82 mg/dl (74-100); Potassium 4.1 mmoL/L (3.5-5.1); Sodium 139 mmol/L (136-145); Total Protein,Serum 7.4 g/dl (6.3-8.2)
[2023-08-30 16:31] LABS: C-Reactive Protein 0.5 mg/L (0-4)
[2023-08-30 16:56] LABS: Thyroid Stimulating Hormone 1.04 uIU/mL (0.465-4.68)
[2023-09-01 13:44] LABS: Anti-Centromere B Antibodies <0.2 AI (0.0-0.9); Anti-DNA (DS) Ab Qn 1 IU/mL (0-9); Anti-Jo-1 <0.2 AI (0.0-0.9); Antichromatin Antibodies <0.2 AI (0.0-0.9); Antiscleroderma-70 Antibodies <0.2 AI (0.0-0.9); RA Latex Turbid. 10.7 IU/mL (<14.0); RNP Antibodies <0.2 AI (0.0-0.9); Sjogren's Anti-SS-A <0.2 AI (0.0-0.9); Sjogren's Anti-SS-B <0.2 AI (0.0-0.9)
[2023-09-01 14:34] LABS: Anti-Cyclic Citrullinated Pept 0 units (0-19)
[2023-09-01 16:03] LABS: Anti-Cardio Antibody IgM 16 MPL U/mL (0-12); Anti-Cardiolipin Antibody IgG <9 GPL U/mL (0-14); Anticardiolipin Ab,IgA,Qn <9 APL U/mL (0-11)
[2023-09-07 21:42] LABS: Anti-Smith Antibody <0.2
== END ==
PROVIDERS: PCP Physician Assistant; Visit Provider Physician Assistant
DX: E03.9 Hypothyroidism, unspecified (principal); M25.50 Pain in unspecified joint; R53.83 Other fatigue; R68.2 Dry mouth, unspecified
CPT/HCPCS: 36415; 80053; 84443; 85025; 85597; 85598; 85610; 85613; 85651; 85670; 85730; 86140; 86146; 86147; 86200; 86225; 86235; 86431

== ENCOUNTER → 2023-09-16 16:22 | Outpatient (CLI) | payer MEDICAID, SELFPAY ==
[2023-09-18 09:12] LABS: RA Latex Turbid. <10.0 IU/mL (<14.0)
[2023-09-20 14:27] LABS: Anti-DNA (DS) Ab Qn 1 IU/mL (0-9)
[2023-09-23 20:45] LABS: APTT 27.4 sec (.); Anti-Cardiolipin Antibody IgG <10 GPL (.); Anti-Cardiolipin Antibody IgM 11 MPL (.); Beta-2 Glycoprotein I Ab, IgA <10 SAU (.); Beta-2 Glycoprotein I Ab, IgG <10 SGU (.); Beta-2 Glycoprotein I Ab, IgM <10 SMU (.); Hexagonal Phase Phospholipid 7 sec (.); Prothrombin Time 10.7 sec (.); Thrombin Time 20.4 sec (.)
== END ==
LOC: LAB 16:23
PROVIDERS: PCP Physician Assistant; Visit Provider Physician Assistant
DX: R53.83 Other fatigue (principal); M25.50 Pain in unspecified joint
CPT/HCPCS: 85597; 85598; 85610; 85613; 85670; 85730; 86146; 86147; 86225; 86431

== ENCOUNTER 2024-01-25 16:45 | Outpatient (CLI) | payer MEDICAID, SELFPAY ==
[2024-01-27 13:53] LABS: Sjogren's Anti-SS-A <0.2 AI (0.0-0.9); Sjogren's Anti-SS-B <0.2 AI (0.0-0.9)
== END 2024-01-25 23:59 | disposition home or self-care (01) ==
LOC: LAB 16:46
PROVIDERS: PCP Physician Assistant; Visit Provider Ophthalmology
DX: M35.00 Sjogren syndrome, unspecified (principal)
CPT/HCPCS: 36415; 86235

== ENCOUNTER 2024-02-29 13:48 | Outpatient (CLI) | payer MEDICAID, SELFPAY ==
--- NOTE | 2024-02-29 13:53 | XR_ITS ---
FINAL REPORT CLINICAL HISTORY: right wrist pain FINDINGS: Right wrist Three views were obtained. There is no acute fracture or dislocation. There are mild degenerative changes. No soft tissue abnormality is identified. IMPRESSION: Mild degenerative changes. Reviewed, Interpreted and Dictated by Kalin Alvarez III, MD Transcribed by Norma Garsia Authenticated and [facility]
--- NOTE | 2024-02-29 13:53 | XR_ITS ---
FINAL REPORT CLINICAL HISTORY: Left wrist pain FINDINGS: Left wrist Three views were obtained. There is no acute fracture or dislocation. There are mild and moderate degenerative changes, greatest involving the 1st carpometacarpal joint. No soft tissue abnormality is identified. IMPRESSION: Degenerative changes as above. Reviewed, Interpreted and Dictated by Kalin Alvarez III, MD Transcribed by Norma Garsia Authenticated and . [facility]
== END 2024-02-29 23:59 | disposition home or self-care (01) ==
LOC: RAD 13:50
PROVIDERS: PCP Physician Assistant; Visit Provider Orthopaedic Surgery
DX: M25.532 Pain in left wrist (principal); M25.531 Pain in right wrist
CPT/HCPCS: 73110

== ENCOUNTER 2024-05-04 16:27 | Outpatient (CLI) | payer MEDICAID, SELFPAY | END 2024-05-04 23:59 | disposition home or self-care (01) | LOC: RAD 16:27 | PROVIDERS: PCP Physician Assistant; Visit Provider Physician Assistant | DX: T14.8XXA Other injury of unspecified body region, initial encounter (principal) ==

== ENCOUNTER 2024-05-25 12:42 | Outpatient (CLI) | payer MEDICAID, SELFPAY ==
--- NOTE | 2024-05-25 12:46 | XR_ITS ---
FINAL REPORT CLINICAL HISTORY: inspect location pain pump for mri COMPARISON: None FINDINGS: AP and oblique views of the abdomen demonstrate a nonobstructive bowel gas pattern. There is a moderate stool burden. An intrathecal catheter is present. There is normal appearing orientation of a pain pump. IMPRESSION: Nonobstructive bowel gas pattern. Normal-appearing orientation of pain pump. Reviewed, Interpreted and Dictated by Kalin Alvarez III, MD Transcribed by Dahiana Perry Authenticated and [facility]
--- NOTE | 2024-05-25 13:08 | MR_ITS ---
FINAL REPORT CLINICAL HISTORY: Chronic neuropathy of LUE. FINDINGS: Multiplanar MR imaging of the cervical spine was performed without contrast. On the sagittal T2-weighted images, disc degeneration is seen at multiple levels. There is no evidence of fracture. The vertebral alignment is normal. The cervical spinal cord has an unremarkable appearance without evidence of mass, edema or syrinx. No significant canal stenosis is identified. The cervicomedullary junction is normal. C2-3: There is no significant canal stenosis or neural foraminal narrowing. C3-4: Disc osteophyte complex with moderate left neuroforaminal narrowing. C4-5: Disc osteophyte complex with moderate left neuroforaminal narrowing. C5-6: Annular disc bulge with uncovertebral osteophytes and right paracentral disc protrusion. There is mild right neuroforaminal narrowing. C6-7: Annular disc bulge with uncovertebral osteophytes and small central disc protrusion. There is mild bilateral neuroforaminal narrowing. C7-T1: There is no significant canal stenosis or neural foraminal narrowing. T1-2: Unremarkable. IMPRESSION: Disc protrusions at C5-6 and C6-7 with mild neuroforaminal narrowing as above. Reviewed, Interpreted and Dictated by Kalin Alvarez III, MD Transcribed by Lizet Arias Authenticated and [facility]
== END 2024-05-25 23:59 | disposition home or self-care (01) ==
LOC: RAD 12:42
PROVIDERS: PCP Physician Assistant; Visit Provider Physician Assistant
DX: M50.222 Other cervical disc displacement at C5-C6 level (principal); M50.223 Other cervical disc displacement at C6-C7 level; G56.92 Unspecified mononeuropathy of left upper limb; G89.29 Other chronic pain; Z97.8 Presence of other specified devices
CPT/HCPCS: 72141; 74019

== ENCOUNTER 2025-03-02 17:25 | Outpatient (CLI) | payer MEDICAID, SELFPAY ==
--- NOTE | 2025-03-02 17:34 | MM_ITS ---
PROCEDURE INFORMATION: Exam: Bilateral Screening 3D Mammography Exam date and time: 03/02/2025 5:33 PM Age: 49 years old Clinical indication: Screening examination TECHNIQUE: Imaging protocol: Bilateral Screening tomosynthesis and 2D mammography including computer-aided detection (CAD) when performed. COMPARISON: DMSB DIG MAMM-SCREEN TIFF 01/10/2014 4:12 PM FINDINGS: MAMMOGRAPHY: Breast composition: The breasts are heterogeneously dense, which may obscure small masses. Mass: None. Architectural distortion: None. Calcifications: No suspicious calcifications. Asymmetric density: None. Skin thickening: None. Axillary adenopathy: None. IMPRESSION: No mammographic evidence of malignancy. Annual screening is recommended unless otherwise clinically indicated. ASSESSMENT: BI-RADS 1, Negative.
== END 2025-03-02 23:59 | disposition home or self-care (01) ==
LOC: RAD 17:26
PROVIDERS: PCP Physician Assistant; Visit Provider Physician Assistant
DX: Z12.31 Encounter for screening mammogram for malignant neoplasm of breast (principal); R92.333 Mammographic heterogeneous density, bilateral breasts
CPT/HCPCS: 77063; 77067

== ENCOUNTER 2025-07-13 15:33 | Outpatient (CLI) | payer MEDICAID, SELFPAY ==
--- OUTSIDE RECORDS SUMMARY | 2025-07-13 15:36 | XMS_ITS | Data Portability ---
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 Pt is aware of the overall IP dosage and its complicated formula. she does not have other control substance oral use. She says that she just hate the change. so far it works for me , I don't want to change Lab work reviewed: UDS of 03/14/24 reviewed and is appropriate: Fentanyl negative reading ( low dose in IP) NATALIA (prescription drug monitoring report): As of 01/11/25 reviewed and is appropriate Got #12 of Hydrocodone 5/325mg after surgery on 12/22/24 [email or web address] Not available 01/11/2025 14:07:19 03/05/2025 03/05/2025 Doing well on current pump regimen. Pump allows patient to remain active despite pain and without significant side effects. Able to manage pain and interact with friends and family. Overall pleased with how she is doing. Will therefore continue regimen unchanged. Plan on perioidic SI injections PRN. Encouraged f/u with rheumatology as she is doing. Not available 03/05/2025 17:45:38 04/24/2025 04/24/2025 Global Risk Assessment Score: Moderate Risk. Pt is aware of the overall IP dosage and its complicated formula. she does not have other control substance oral use. She says that she just hate the change. 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 Not available Not available Not available Lab drug screen, urine - Meds: morphine and fentanyl - pump provigil 2024 025 CORBIN Carter MD [facility] ([facility]), [address] [place] [address], [address], 03/14/2025 11:36:20 CBC w/ auto diff 2024 025 CORBIN Carter MD [facility] ([facility] House [facility]), [address] [place] [address], [address], 03/07/2025 10:15:01 hepatic function panel, serum 2024 025 CORBIN Carter MD [facility] ([facility]), [address] [place] [address], [id number], 03/07/2025 10:15:01 gamma-glu tamyl transfera se (ggt), serum 2024 025 CORBIN Carter MD [facility] ([facility]), [facility] [place], [address], 03/07/2025 10:15:02 venipunct ure 2024 025 CORBIN Carter MD [facility] ([facility]), [address] [place] [address], [address], 03/07/2025 10:15:00 drug screen, urine 2024 025 CORBIN Carter MD [facility] ([facility]), [address] [place], [address], 01/25/2025 16:44:31 venipunct ure 2024 025 rob Carter MD [facility] ([facility]), [address] [place], [address], 02/01/2025 09:33:44 gamma-glu tamyl transfera se (ggt), serum 2024 025 rob Carter MD [facility] ([facility]), [address] [place], [address], 01/19/2025 08:19:18 CBC w/ auto diff 2024 025 rob Carter MD [facility] ([facility]), [address] [place] [address], [address], 01/19/2025 08:19:18 hepatic function panel, serum 2024 025 rob Carter MD [facility] ([facility]), [address] [place] [address], [address], 02/01/2025 09:33:44 Referral None recorded. Procedures None recorded. Surgeries None recorded. Imaging None recorded. Medication Orders None recorded. Patient Targets Encounter Date Encounter Id Patient Goals Patient Target Last Modified By Organization Details Last Modified Time 01/11/2025 LBP and Rt leg pain under the control. IP function well. Be able to enjoy daily activities [email or web address] Not available 01/11/2025 13:47:46 04/24/[id number] LBP and Rt leg pain under the control. IP function well. Be able to enjoy daily activities [email or web address] Not available 05/16/2025 21:54:02 Patient Instructions Encounter Date Encounter Id Patient Instructions Last Modified By Organization Details Last Modified Time 01/11/2025 Daily stretch, maintain activity level. Gait and posture daily exercises. fall prevention [email or web address] Not available 01/11/2025 13:47:47 1. Current IP application 2. Smoking quitting. . Patient seen today incident to a physician s previously established diagnosis and plan of care. Follow-up care provided today under the plan of care of: Marvin Orta MD and supervision of: Alexandro Bruno MD. [email or web address] Not available 01/11/2025 13:47:49 03/05/2025 [id number] Patient seen today incident to a physician s previously established diagnosis and plan of care. Follow-up care provided today under the plan of care of: Beto Carter MD and supervision of: Beto Carter MD. [email or web address] Not available 03/22/2025 11:00:10 04/24/2025 [id number] Daily stretch, maintain activity level. Gait and posture daily exercises. fall prevention [email or web address] Not available 05/16/2025 21:54:03 1. Current IP application 2. Smoking quitting. . Patient seen today incident to a physician s previously established diagnosis and plan of care. Follow-up care provided today under the plan of care of: Beto Carter MD and supervision of: Beto Carter MD. [email or web address] Not available 05/17/2025 10:09:42 Reason for Referral None Reported. Results Created Date Observation Date Name Description Value Unit Range Abnormal Flag Note LastModifiedBy Organization Detail LastModifiedTime 01/12/2001/11/2025 MORPH INE SULFA TE abnormal status abnormal Not Available Nate Carter MD [facility] ([facility]) [address] [place], [address], 01/25/2025 16:44:32 01/12/20 25 01/11/2025 MORPH INE SULFA TE abnormal status high Not Available Nate Carter MD [facility] ([facility]) [address] [place], [address], 01/25/2025 16:44:32 01/12/20 25 01/25/2025 OPIAT E DEFIN ITIVE PANEL LC/MS codeine 0.0 NG/mL <75.0 Not Available Murphy Carter MD [facility] ([facility]) [address] [place], [address], 01/25/2025 16:44:31 01/12/20 25 01/25/2025 OPIAT E DEFIN ITIVE PANEL LC/MS morphine >5000 NG/mL <75.0 abnormal Not Available Murphy Carter MD [facility] ([facility]) [address] [place] [address], 783[address], 01/25/2025 16:44:31 01/12/20 25 01/25/2025 OPIAT E DEFIN ITIVE PANEL LC/MS 6-EMILY 0 NG/mL <15.0 Not Available Murphy Carter MD [facility] ([facility]) [address] [place] [address], [address], 01/25/2025 16:44:31 01/12/20 25 01/25/2025 OPIAT E DEFIN ITIVE PANEL LC/MS hydromorphon e 21.0 NG/mL <75.0 Not Available Nate Carter MD [facility] ([facility]) [address] [place] [address], 55678, 01/25/2025 16:44:31 01/12/20 25 01/25/2025 OPIAT E DEFIN ITIVE PANEL LC/MS hydrocodone 0 NG/mL <75.0 Not Available Nate Carter MD [facility] ([facility]) [address] [place] [address], 09279, 01/25/2025 16:44:31 01/12/20 25 01/25/2025 OPIAT E DEFIN ITIVE PANEL LC/MS norhydrocodo ne 0 NG/mL <75.0 Not Available Nate Carter MD [facility] ([facility]) [address] [place] [address], 30[address], 01/25/2025 16:44:31 01/12/20 25 01/11/2025 D-PRE SUMPT CASS URINE DRUG REPOR T amphetamine NEGATI VE NG/mL <1000. 0 Not Available Murphy Carter MD [facility] ([facility]) [address] [place] [address], 775[address], 01/25/2025 16:44:31 01/12/20 25 01/11/2025 D-PRE SUMPT CASS URINE DRUG REPOR T benzodiazepi ne 37.0 NG/mL <200.0 Curre nt metho d may not detec t low level s of [place] pin Not Available Murphy Carter MD [facility] ([facility]) [address] [place] [address], [address], 01/25/2025 16:44:31 01/12/20 25 01/11/2025 D-PRE SUMPT CASS URINE DRUG REPOR T buprenorphin e NEGATI VE NG/mL <10.0 Not Available Murphy Carter MD [facility] ([facility]) [address] [place] [address], 99118, 01/25/2025 16:44:31 01/12/20 25 01/11/2025 D-PRE SUMPT CASS URINE DRUG REPOR T cannabinoid NEGATI VE NG/mL <50.0 Not Available Murphy Carter MD [facility] ([facility]) [address] [place] [address], 85965, 01/25/2025 16:44:31 01/12/20 25 01/11/2025 D-PRE SUMPT CASS URINE DRUG REPOR T cocaine NEGATI VE NG/mL <300.0 Not Available Murphy Carter MD [facility] ([facility]) [address] [place] [address], 234[address], 01/25/2025 16:44:31 01/12/20 25 01/11/2025 D-PRE SUMPT CASS URINE DRUG REPOR T ethanol NEGATI VE mg/dL <50.0 Not Available Murphy Carter MD [facility] ([facility]) [address] [place] [address], 12[address], 01/25/2025 16:44:31 01/12/20 25 01/11/2025 D-PRE SUMPT CASS URINE DRUG REPOR T methadone 3.0 NG/mL <300.0 Not Available Murphy Carter MD [facility] ([facility]) [address] [place] [address], 86664, 01/25/2025 16:44:31 01/12/20 25 01/11/2025 D-PRE SUMPT CASS URINE DRUG REPOR T opiates 1284.0 NG/mL <300.0 high Opiat es inclu hesham Codei ne,Mo rphin e, [place] morph one,H ydroc odone Not Available Murphy Carter MD [facility] ([facility]) [address] [place] [address], 860[address], 01/25/2025 16:44:31 01/12/20 25 01/11/2025 D-PRE SUMPT CASS URINE DRUG REPOR T oxycodone 2.0 NG/mL <300.0 Not Available Murphy Carter MD [facility] ([facility]) [address] [place] [address], 19[address], 01/25/2025 16:44:31 01/12/20 25 01/11/2025 D-PRE SUMPT CASS URINE DRUG REPOR T urine creatinine (validity test) 148.9 mg/dL 20.0 - 300.0 Not Available Murphy Carter MD [facility] ([facility]) [address] [place] [address], 57594, 01/25/2025 16:44:31 03/05/20 25 03/05/2025 GGT abnormal status high Not Available Nate Carter MD [facility] ([facility]) [address] [place] [address], 03133, 03/07/2025 10:15:02 03/05/20 25 03/05/2025 MORPH INE SULFA TE abnormal status abnormal Not Available Nate Carter MD [facility] ([facility]) [address] [place] [address], 54686, 03/14/2025 11:36:21 03/05/20 25 03/05/2025 MORPH INE SULFA TE abnormal status high Not Available Nate Carter MD [facility] ([facility]) [address] [place] [address], 04764, 03/14/2025 11:36:21 03/05/20 25 03/14/2025 OPIAT E DEFIN ITIVE PANEL LC/MS codeine 0.0 NG/mL <75.0 Not Available Murphy Carter MD [facility] ([facility]) [address] [place] [address], 59451, 03/14/2025 11:36:20 03/05/2003/14/2025 OPIAT E DEFIN ITIVE PANEL LC/MS morphine >5000 NG/mL <75.0 abnormal Not Available Murphy Carter MD [facility] ([facility]) [address] [place] [address], 26852, 03/14/2025 11:36:20 03/05/2003/14/2025 OPIAT E DEFIN ITIVE PANEL LC/MS 6-EIMLY 0 NG/mL <15.0 Not Available Murphy Carter MD [facility] ([facility]) [address] [place] [address], 79701, 03/14/2025 11:36:20 03/05/2003/14/2025 OPIAT E DEFIN ITIVE PANEL LC/MS hydromorphon e 38.2 NG/mL <75.0 Not Available Nate Carter MD [facility] ([facility]) [address] [place] [address], 18641, 03/14/2025 11:36:20 03/05/20 25 03/14/2025 OPIAT E DEFIN ITIVE PANEL LC/MS hydrocodone 0 NG/mL <75.0 Not Available Nate Carter MD [facility] ([facility]) [address] [place] [address], 28835, 03/14/2025 11:36:20 03/05/20 25 03/14/2025 OPIAT E DEFIN ITIVE PANEL LC/MS norhydrocodo ne 0 NG/mL <75.0 Not Available Nate Carter MD [facility] ([facility]) [address] [place] [address], 68894, 03/14/2025 11:36:20 03/05/20 25 03/06/2025 D-PRE SUMPT CASS URINE DRUG REPOR T amphetamine NEGATI VE NG/mL <1000. 0 Not Available Murphy Carter MD [facility] ([facility]) [address] [place] [address], 70552, 03/14/2025 11:36:20 03/05/20 25 03/06/2025 D-PRE SUMPT CASS URINE DRUG REPOR T benzodiazepi ne 83.0 NG/mL <200.0 Curre nt metho d may not detec t low level s of [place] pin Not Available Murphy Carter MD [facility] ([facility]) [address] [place] [address], 46934, 03/14/2025 11:36:20 03/05/20 25 03/06/2025 D-PRE SUMPT CASS URINE DRUG REPOR T buprenorphin e NEGATI VE NG/mL <10.0 Not Available Murphy Carter MD [facility] ([facility]) [address] [place] [address], 70319, 03/14/2025 11:36:20 03/05/20 25 03/06/2025 D-PRE SUMPT CASS URINE DRUG REPOR T cannabinoid NEGATI VE NG/mL <50.0 Not Available Murphy Carter MD [facility] ([facility]) [address] [place] [address], 92703, 03/14/2025 11:36:20 03/05/20 25 03/06/2025 D-PRE SUMPT CASS URINE DRUG REPOR T cocaine NEGATI VE NG/mL <300.0 Not Available Murphy Carter MD [facility] ([facility]) [address] [place] [address], 84688, 03/14/2025 11:36:20 03/05/20 25 03/06/2025 D-PRE SUMPT CASS URINE DRUG REPOR T ethanol NEGATI VE mg/dL <50.0 Not Available Murphy Carter MD [facility] ([facility]) [address] [place] [address], 31269, 03/14/2025 11:36:20 03/05/20 25 03/06/2025 D-PRE SUMPT CASS URINE DRUG REPOR T methadone <0.8 NG/mL <300.0 Not Available Murphy Carter MD [facility] ([facility]) [address] [place] [address], 48390, 03/14/2025 11:36:20 03/05/20 25 03/06/2025 D-PRE SUMPT CASS URINE DRUG REPOR T opiates 1124.0 NG/mL <300.0 high Opiat es inclu hesham Codei ne,Mo rphin e, [place] morph one,H ydroc odone Not Available Murphy Carter MD [facility] ([facility]) [address] [place] [address], 05653, 03/14/2025 11:36:20 03/05/20 25 03/06/2025 D-PRE SUMPT CASS URINE DRUG REPOR T oxycodone 8.0 NG/mL <300.0 Not Available Murphy Carter MD [facility] ([facility]) [address] [place] [address], 99446, 03/14/2025 11:36:20 03/05/20 25 03/06/2025 D-PRE SUMPT CASS URINE DRUG REPOR T urine creatinine (validity test) 203.8 mg/dL 20.0 - 300.0 Not Available Murphy Carter MD [facility] ([facility]) [address] [place] [address], 16101, 03/14/2025 11:36:20 03/05/20 25 03/06/2025 RENAL FUNCT ION PANEL /HEPA TIC PANEL glucose 79.0 mg/dL 74.0 - 110.0 Not Available Murphy Carter MD [facility] ([facility]) [address] [place] [address], 27900, 03/07/2025 10:15:01 03/05/20 25 03/06/2025 RENAL FUNCT ION PANEL /HEPA TIC PANEL BUN 10.0 mg/dL 4.0 - 25.0 Not Available Murphy Carter MD [facility] ([facility]) [address] [place] [address], 28140, 03/07/2025 10:15:01 03/05/20 25 03/06/2025 RENAL FUNCT ION PANEL /HEPA TIC PANEL creatinine 0.6 mg/dL 0.6 - 1.8 Not Available Murphy Carter MD [facility] ([facility]) [address] [place], [address], 03/07/2025 10:15:01 03/05/20 25 03/06/2025 RENAL FUNCT ION PANEL /HEPA TIC PANEL sodium 142 mEq/L 133 - 145 Not Available Murphy Carter MD [facility] ([facility]) [address] [place], [address], 03/07/2025 10:15:01 03/05/20 25 03/06/2025 RENAL FUNCT ION PANEL /HEPA TIC PANEL potassium 3.6 mEq/L 3.4 - 5.1 Not Available Murphy Carter MD [facility] ([facility]) [address] [place], [address], 03/07/2025 10:15:01 03/05/20 25 03/06/2025 RENAL FUNCT ION PANEL /HEPA TIC PANEL chloride 101.1 mEq/L 93.0 - 106.0 Not Available Murphy Carter MD [facility] ([facility]) [address] [place] [address], 58[address], 03/07/2025 10:15:01 03/05/20 25 03/06/2025 RENAL FUNCT ION PANEL /HEPA TIC PANEL eco2 33.0 mEq/L 24.6 - 35.8 Not Available Murphy Carter MD [facility] ([facility]) [address] [place], [address], 03/07/2025 10:15:01 03/05/20 25 03/06/2025 RENAL FUNCT ION PANEL /HEPA TIC PANEL calcium 8.8 mg/dL 8.3 - 10.1 Not Available Murphy Carter MD [facility] ([facility]) [address] [place] [address], 10940, 03/07/2025 10:15:01 03/05/20 25 03/06/2025 RENAL FUNCT ION PANEL /HEPA TIC PANEL phosphorus 3.6 mg/dL 2.3 - 4.8 Not Available Murphy Carter MD [facility] ([facility]) [facility] [place], [address], 03/07/2025 10:15:01 03/05/20 25 03/06/2025 RENAL FUNCT ION PANEL /HEPA TIC PANEL total protein 6.6 g/dL 6.0 - 8.5 Not Available Murphy Carter MD [facility] ([facility]) [address] [place], [address], 03/07/2025 10:15:01 03/05/20 25 03/06/2025 RENAL FUNCT ION PANEL /HEPA TIC PANEL albumin 4.1 g/dL 3.3 - 4.9 Not Available Murphy Carter MD [facility] ([facility]) [address] [place] [address], 87409, 03/07/2025 10:15:01 03/05/20 25 03/06/2025 RENAL FUNCT ION PANEL /HEPA TIC PANEL ALP 64.0 U/L 46.0 - 116.0 Not Available Murphy Carter MD [facility] ([facility]) [address] [place] [address], 85799, 03/07/2025 10:15:01 03/05/20 25 03/06/2025 RENAL FUNCT ION PANEL /HEPA TIC PANEL AST 19 U/L 6 - 40 Not Available Murphy Carter MD [facility] ([facility]) [address] [place], [address], 03/07/2025 10:15:01 03/05/20 25 03/06/2025 RENAL FUNCT ION PANEL /HEPA TIC PANEL ALT 14 U/L 5 - 30 Not Available Murphy Carter MD [facility] ([facility]) [address] [place] [address], 79685, 03/07/2025 10:15:01 03/05/20 25 03/06/2025 RENAL FUNCT ION PANEL /HEPA TIC PANEL total bilirubin 0.29 mg/dL 0.00 - 1.00 Not Available Murphy Carter MD [facility] ([facility]) [address] [place] [address], 51100, 03/07/2025 10:15:01 03/05/20 25 03/06/2025 RENAL FUNCT ION PANEL /HEPA TIC PANEL direct bilirubin 0.05 mg/dL 0.00 - 0.40 Not Available Murphy Carter MD [facility] ([facility]) [address] [place], [address], 03/07/2025 10:15:01 03/05/20 25 03/05/2025 CBC WITH DIFFE RENTI AL/PL ATELE T WBC 3.0 10 4.0 - 11.0 high Not Available Murphy Carter MD [facility] ([facility]) [address] [place] [address], 37898, 03/07/2025 10:15:01 03/05/20 25 03/05/2025 CBC WITH DIFFE RENTI AL/PL ATELE T RBC 4.03 10 3.72 - 5.52 Not Available Murphy Carter MD [facility] ([facility]) [address] [place] [address], 13809, 03/07/2025 10:15:01 03/05/20 25 03/05/2025 CBC WITH DIFFE RENTI AL/PL ATELE T HGB 12.0 g/dL 11.0 - 16.6 Not Available Murphy Carter MD [facility] ([facility]) [address] [place] [address], 21967, 03/07/2025 10:15:01 03/05/20 25 03/05/2025 CBC WITH DIFFE RENTI AL/PL ATELE T HCT 37.6 % 34.0 - 49.0 Not Available Murphy Carter MD [facility] ([facility]) [address] [place] [address], 71545, 03/07/2025 10:15:01 03/05/20 25 03/05/2025 CBC WITH DIFFE RENTI AL/PL ATELE T MCV 93.3 fL 79.5 - 101.0 Not Available Murphy Carter MD [facility] ([facility]) [address] [place] [address], 30573, 03/07/2025 10:15:01 03/05/20 25 03/05/2025 CBC WITH DIFFE RENTI AL/PL ATELE T MCH 29.8 pg 26.2 - 34.0 Not Available Murphy Carter MD [facility] ([facility]) [address] [place] [address], 66486, 03/07/2025 10:15:01 03/05/20 25 03/05/2025 CBC WITH DIFFE RENTI AL/PL ATELE T MCHC 31.9 g/dL 31.3 - 36.0 Not Available Murphy Carter MD [facility] ([facility]) [address] [place] [address], 74688, 03/07/2025 10:15:01 03/05/20 25 03/05/2025 CBC WITH DIFFE RENTI AL/PL ATELE T plt 185 10 115 - 421 Not Available Murphy Carter MD [facility] ([facility]) [address] [place] [address], 47281, 03/07/2025 10:15:01 03/05/20 25 03/05/2025 CBC WITH DIFFE RENTI AL/PL ATELE T RDW-CV 12.9 % 11.3 - 16.1 Not Available Murphy Carter MD [facility] ([facility]) [address] [place] [address], 46024, 03/07/2025 10:15:01 03/05/20 25 03/05/2025 CBC WITH DIFFE RENTI AL/PL ATELE T neut# 1.53 10 0.81 - 9.65 Not Available Murphy Carter MD [facility] ([facility]) [address] [place] [address], 11959, 03/07/2025 10:15:01 03/05/20 25 03/05/2025 CBC WITH DIFFE RENTI AL/PL ATELE T lymph# 1.29 10 0.65 - 4.81 Not Available Murphy Carter MD [facility] ([facility]) [address] [place] [address], 39905, 03/07/2025 10:15:01 03/05/20 25 03/05/2025 CBC WITH DIFFE RENTI AL/PL ATELE T mono# 0.17 10 0.10 - 1.13 Not Available Murphy Carter MD [facility] ([facility]) [address] [place] [address], 58695, 03/07/2025 10:15:01 03/05/20 25 03/05/2025 CBC WITH DIFFE RENTI AL/PL ATELE T eo# 0.05 10 0.00 - 0.50 Not Available Murphy Carter MD [facility] ([facility]) [address] [place] [address], 84713, 03/07/2025 10:15:01 03/05/20 25 03/05/2025 CBC WITH DIFFE RENTI AL/PL ATELE T baso# 0.01 10 0.00 - 0.09 Not Available Murphy Carter MD [facility] ([facility]) [address] [place] [address], 33785, 03/07/2025 10:15:01 03/05/20 25 03/05/2025 CBC WITH DIFFE RENTI AL/PL ATELE T neut% 50.2 % 37.2 - 78.0 Not Available Murphy Carter MD [facility] ([facility]) [address] [place] [address], 48677, 03/07/2025 10:15:01 03/05/20 25 03/05/2025 CBC WITH DIFFE RENTI AL/PL ATELE T lymph% 42.3 % 13.4 - 50.2 Not Available Murphy Carter MD [facility]) [address] [place] [address], 57513, 03/07/2025 10:15:01 03/05/20 25 03/05/2025 CBC WITH DIFFE RENTI AL/PL ATELE T mono% 5.6 % 3.4 - 12.0 Not Available Murphy Carter MD [facility] ([facility]) [address] [place] [address], 93819, 03/07/2025 10:15:01 03/05/20 25 03/05/2025 CBC WITH DIFFE RENTI AL/PL ATELE T eo% 1.6 % 0.0 - 7.0 Not Available Murphy Carter MD [facility] ([facility]) [address] [place] [address], 92604, 03/07/2025 10:15:01 03/05/20 25 03/05/2025 CBC WITH DIFFE RENTI AL/PL ATELE T baso% 0.3 % 0.0 - 3.0 Not Available Murphy Carter MD [facility] ([facility]) [address] [place] [address], 09624, 03/07/2025 10:15:01 06/14/20 25 06/14/2025 MORPH INE SULFA TE abnormal status abnormal Not Available Nate Carter MD [facility] ([facility]) [address] [place] [address], 52344, 07/03/2025 14:08:19 06/14/20 25 06/14/2025 MORPH INE SULFA TE abnormal status high Not Available Nate Carter MD [facility] ([facility]) [address] [place] [address], 07068, 07/03/2025 14:08:19 06/14/20 25 07/03/2025 OPIAT E DEFIN ITIVE PANEL LC/MS codeine 0.0 NG/mL <75.0 Not Available Murphy Carter MD [facility] ([facility]) [address] [place] [address], 96255, 07/03/2025 14:08:18 06/14/20 25 07/03/2025 OPIAT E DEFIN ITIVE PANEL LC/MS morphine >5000 NG/mL <75.0 abnormal Not Available Murphy Carter MD [facility] ([facility]) [address] [place] [address], 86230, 07/03/2025 14:08:18 06/14/20 25 07/03/2025 OPIAT E DEFIN ITIVE PANEL LC/MS 6-EMILY 0 NG/mL <15.0 Not Available Murphy Carter MD [facility] ([facility]) [address] [place] [address], [id number], 07/03/2025 14:08:18 06/14/20 25 07/03/2025 OPIAT E DEFIN ITIVE PANEL LC/MS hydromorphon e 39.1 NG/mL <75.0 Not Available Nate Carter MD [facility] (In House [facility]) [address] [place] [address], [id number], 07/03/2025 14:08:18 06/14/20 25 07/03/2025 OPIAT E DEFIN ITIVE PANEL LC/MS hydrocodone 0 NG/mL <75.0 Not Available Nate Carter MD [facility] (In House Lab) [address] [place] [address], [id number], 07/03/2025 14:08:18 06/14/20 25 07/03/2025 OPIAT E DEFIN ITIVE PANEL LC/MS norhydrocodo ne 0 NG/mL <75.0 Not Available Nate Carter MD [facility] (In House [facility]) [address] [place] [address], [id number], 07/03/2025 14:08:18 06/14/20 25 06/15/2025 D-PRE SUMPT CASS URINE DRUG REPOR T amphetamine NEGATI VE NG/mL <1000. 0 Not Available Murphy Carter MD [facility] (In House [facility]) [address] [place] [address], [id number], 07/03/2025 14:08:17 06/14/20 25 06/15/2025 D-PRE SUMPT CASS URINE DRUG REPOR T benzodiazepi ne 95.0 NG/mL <200.0 Curre nt metho d may not detec t low level s of [place] Not Available Murphy Carter MD [facility] (In House Lab) [address] [place] [address], [id number], 07/03/2025 14:08:17 06/14/20 25 06/15/2025 D-PRE SUMPT CASS URINE DRUG REPOR T buprenorphin e NEGATI VE NG/mL <10.0 Not Available Murphy Carter MD [facility] (In House [facility]) [address] [place] [address], [id number], 07/03/2025 14:08:17 06/14/20 25 06/15/2025 D-PRE SUMPT CASS URINE DRUG REPOR T cannabinoid NEGATI VE NG/mL <50.0 Not Available Murphy Carter MD [facility] (In House [facility]) [address] [place] [address], [id number], 07/03/2025 14:08:17 06/14/20 25 06/15/2025 D-PRE SUMPT CASS URINE DRUG REPOR T cocaine NEGATI VE NG/mL <300.0 Not Available Murphy Carter MD [facility] (In House Lab) [address] [place] [address], [id number], 07/03/2025 14:08:17 06/14/20 25 06/15/2025 D-PRE SUMPT CASS URINE DRUG REPOR T ethanol NEGATI VE mg/dL <50.0 Not Available Murphy Carter MD [facility] (In House Lab) [address] [place] [address], [id number], 07/03/2025 14:08:17 06/14/20 25 06/15/2025 D-PRE SUMPT CASS URINE DRUG REPOR T methadone 1.0 NG/mL <300.0 Not Available Murphy Carter MD [facility] (In House Lab) [address] [place] [address], [id number], 07/03/2025 14:08:17 06/14/20 25 06/15/2025 D-PRE SUMPT CASS URINE DRUG REPOR T opiates 1233.0 NG/mL <300.0 high Opiat es inclu hesham Codei ne,Mo rphin e, [place] morph one,H ydroc odone Not Available Murphy Carter MD [facility] (In House Lab) [address] [place], [address], 07/03/2025 14:08:17 06/14/20 25 06/15/2025 D-PRE SUMPT CASS URINE DRUG REPOR T oxycodone 6.0 NG/mL <300.0 Not Available Murphy Carter MD [facility] (In House Lab) [address] [place], [address], 07/03/2025 14:08:17 06/14/20 25 06/15/2025 D-PRE SUMPT CASS URINE DRUG REPOR T urine creatinine (validity test) >300 mg/dL 20.0 - 300.0 high Not Available Murphy Carter MD [facility] (In House Lab) [address] [place], [address], 07/03/2025 14:08:17 Result Notes None recorded. Problems Name Problem SNOMED Code Status Onset Date Resolution Date Notes Provider Name and Address Organization Details Recorded Time Lumbar post-lami nectomy syndrome 415451020 Active (722.83)P ostlamine ctomy Syndrome of Lumbar Region Not Available [facility] 2 22:28:56 Depressio n screening Active (V79.0)Sp ecial Screening Examinati on for Depressio n Not Available [facility] 2 22:28:59 Chronic pain 92338068 Active 2010 (338.29)O ther Chronic Pain Not Available [facility] 2 22:28:55 Inflammat ion of sacroilia c joint 17379895 Active 2010 (720.2)Sa croiliiti s Not Elsewhere Classifie d Not Available [facility] 2 22:28:55 Lumbosacr al spondylos is without myelopath y 82098314 Active 2010 (721.3)Tiff mbosacral Spondylos is Without Myelopath y Not Available [facility] 2 22:28:55 Degenerat ion of intervert ebral disc Active 2010 (722.52)L umbar or Lumbosacr al Disc Degenerat ion Not Available [facility] 2 22:28:55 Disorder of trunk Active 2010 (724.4)Th oracic or Lumbosacr al Neuritis or Radiculit is Not Otherwise Specified Not Available [facility] 2 22:28:56 Fibromyos itis 20280734 Active 2010 (729.1)My algia and Myositis Not Otherwise Specified Not Available [facility] 2 22:28:56 Long-term drug therapy Active 2010 (V58.69)E ncounter for Long-Term Use of Other Medicatio ns Not Available [facility] 2 22:28:59 Drug dependenc e 093255175 Active 2010 (304.90)D rug Dependenc e Not Otherwise Specified Unspecifi ed Not Available [facility] 2 22:28:55 Low back pain 114194811 Active 2010 (724.2)Tiff mbago Not Available [facility] 2 22:28:56 Multiple stiff joints Active 2012 (719.59)S tiffness of Joint Not Elsewhere Classifie d of Multiple Sites Not Available [facility] 2 22:28:55 Brachial neuritis Active 2012 (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)Br achial Neuritis or Radiculit is Not Otherwise Specified Not Available [facility] 2 22:28:56 Muscle weakness 27678395 Active 2012 (728.87)G eneralize d Muscle Weakness Not Available [facility] 2 22:28:56 Abnormal weight gain 891671236 Active 2012 (783.1)Ab normal Weight Gain Not Available [facility] 2 22:28:56 Continuou s opioid dependenc e 524863253 Active 2013 (304.01)O pioid Type Dependenc e Continuou s Not Available [facility] 2 22:28:55 Opioid dependenc e 77497983 Active 2014 (304.00)O pioid Type Dependenc e Unspecifi ed Not Available [facility] 2 22:28:55 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 (F19.20)O ther psychoact cass substance dependenc e, uncomplic ated Not Available [facility] 2 22:28:56 Joint stiffness 21239173 Active 2014 (M25.60)S tiffness of unspecifi ed joint, not elsewhere classifie d Not Available [facility] 2 22:28:56 Lumbosacr al spondylos is with radiculop athy 630074024 Active 2014 (M47.27)O ther spondylos is with radiculop athy, lumbosacr al region Not Available [facility] 2 22:28:57 Degenerat ion of lumbar intervert ebral disc 50884748 Active 2014 (M51.36)O ther intervert ebral disc degenerat ion, lumbar region Not Available [facility] 2 22:28:57 Degenerat ion of lumbosacr al intervert ebral disc 95122686 Active 2014 (M51.37)O ther intervert ebral disc degenerat ion, lumbosacr al region Not Available [facility] 2 22:28:57 Cervical radiculop athy 54529597 Active 2014 (M54.12)R adiculopa thy, cervical region Not Available [facility] 2 22:28:57 Nerve root disorder 76570535 Active 2014 (M54.15)R adiculopa thy, thoracolu mbar region Not Available [facility] 2 22:28:57 Myositis 27684352 Active 2014 (M60.80)O ther myositis, unspecifi ed site Not Available [facility] 2 22:28:57 Muscle pain 55454885 Active 2014 (M79.1)My algia Not Available [facility] 2 22:28:58 Post-lami nectomy syndrome 68319840 Active 2014 (M96.1)Po stlaminec tatianna syndrome, not elsewhere classifie d Not Available [facility] 2 22:28:58 Screening for disorder Active 2014 (Z13.89)E ncounter for screening for other disorder Not Available [facility] 2 22:28:59 Long-term current use of opiate analgesic drug 17496789062 4108 Active 2014 (Z79.891) 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 Not Available [facility] 2 22:29:00 Current drug user 158966124 Active 2014 (Z79.899) 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 Not Available [facility] 2 22:29:00 Finding of general energy 157528649 Active 2015 (R53.83)O ther fatigue Not Available [facility] 2 22:28:59 Reduced libido 5576780 Active 2015 (R68.82)D ecreased libido Not Available [facility] 2 22:28:59 Clinical finding Active 2015 (M62.50)M uscle wasting and atrophy, not elsewhere classifie d, unspecifi ed site Not Available [facility] 2 22:28:58 Lumbar spondylos is with myelopath y 07692922 Active 2016 (M47.16)O ther spondylos is with myelopath y, lumbar region Not Available [facility] 2 22:28:57 Lumbar spondylos is 165940876 Active 2016 (M47.26)O ther spondylos is with radiculop athy, lumbar region Not Available [facility] 2 22:28:57 Spondylos is without myelopath y 86230466 Active 2016 (M47.816) Spondylos is without myelopath y or radiculop athy, lumbar region Not Available [facility] 2 22:28:57 Chronic pain following trauma 285188760 Active 2016 (G89.21)C hronic pain due to trauma Not Available [facility] 2 22:28:56 Screening for osteoporo sis Active 2017 (Z13.820) Encounter for screening for osteoporo sis Not Available [facility] 2 22:28:59 Pre-surge ry testing Active 2019 (Z01.812) Encounter for preproced ural laborator y examinati on Not Available [facility] 2 22:28:59 Problem Notes None recorded. Procedures Surgical History Date Name Laterality Status Provider Name and Address Organization Details Recorded Time 06/14/2025 Pain Pump active Edie Shetty APRN [address] [place], [address], [facility] 06/14/2025 14:54:10 04/24/2025 Pain Pump completed [place], [address], [facility] 05/17/2025 10:08:45 03/05/2025 Pain Pump completed [place], [address], [facility] 03/22/2025 10:59:48 01/11/2025 Pain Pump completed [place], [address], [facility] 02/03/2025 15:15:16 11/23/2024 Pain Pump [place], [address], [facility] 12/07/2024 19:41:52 10/03/2024 Pain Pump completed Edie Shetty APRN [address] [place], [address], [facility] 10/31/2024 13:50:22 08/10/2024 Pain Pump completed Edie Shetty, JUANITA [address] [place], [address], [facility] 09/04/2024 18:38:01 06/22/2024 Pain Pump completed Edie Shetty, JUANITA [address] [place], [address], [facility] 07/25/2024 13:41:39 05/02/2024 Pain Pump completed Edie Shetty, JUANITA [address] [place], [address], [facility] 05/30/2024 20:07:31 03/14/2024 Pain Pump completed Edie Shetty, JUANITA [address] [place], [address], [facility] 03/26/2024 23:43:57 01/20/2024 Pain Pump completed Edie Shetty, JUANITA [address] [place], [address], [facility] 02/18/2024 13:56:00 11/29/2023 Pain Pump completed [place], [address], [facility] 12/16/2023 14:40:55 10/04/2023 Pain Pump completed [place], [address], [facility] 10/27/2023 09:26:02 08/09/2023 Pain Pump completed GABRIEL Schmidt [facility] [address], [facility] 09/12/2023 22:22:36 06/16/2023 Pain Pump completed [place], [address], [facility] 07/14/2023 17:00:25 04/26/2023 Pain Pump completed [place], [address], [facility] 05/05/2023 12:57:44 03/09/2023 Pain Pump completed [place], [address], [facility] 03/09/2023 16:43:03 01/12/2023 Pain Pump completed [place], [address], [facility] 02/03/2023 11:24:27 11/17/2022 Pain Pump completed [place], [address], [facility] 11/27/2022 09:04:34 08/18/2022 Pain Pump completed [place], [address], [facility] 09/27/2022 01:18:55 06/23/2022 Pain Pump completed [place], [address], [facility] 07/01/2022 17:00:35 04/27/2022 Pain Pump completed [place], [address], [facility] 07/02/2022 09:53:56 03/10/2022 Pain Pump completed GABRIEL Schmidt [address] [facility], [place], [address], [facility] 04/20/2022 23:28:01 Imaging Results None recorded. Procedure Notes None recorded. Medical Equipment None Reported. Allergies Allergen ID Allergen Name Allergen Category Reaction Reaction Severity Criticality Documentation Date Start Date Code Code System Note Provider Name and Address Organization Details Recorded Time 84326 Oxycontin medicatio n Not available Not available Not available 02/17/20222010 43821 6 RxNorm Remem bered she was given this after surge ry once. React ion: with nause a(Mil d) Not Available [facility] 22:01:22 73636 tramadol Not available Not available Not available Not available 02/17/20222010 74257 RxNorm Not Available [facility] 2 22:01:22 Medications Name Sig Start Date Stop Date Status Note LastModified by Organization Details LastModified Time MORPHINE SULFATE POWDER 100 % Morphine 20 mg/ml, Bupivaca ine 12 mg/ml and Fentanyl 125 mcg/ml and Clonidin e 100 mcg/ml total 22 ml for IP use 2023 active Not Available Not Available Not Avai lable MORPHINE SULFATE POWDER 100 % Morphine 20 mg/ml, Bupivaca ine 12 mg/ml and Fentanyl 125 mcg/ml and Clonidin e 100 mcg/ml total 22 ml for IP use 2023 active Not Available Not Available Not Avai lable MORPHINE SULFATE POWDER 100 % Morphine 20 mg/ml, Bupivaca ine 12 mg/ml and Fentanyl 125 mcg/ml and Clonidin e 100 mcg/ml total 22 ml for IP use 2022 active Not Available Not Available Not Avai lable MORPHINE SULFATE POWDER 100 % Morphine 20 mg/ml, Bupivaca ine 12 mg/ml and Fentanyl 125 mcg/ml and Clonidin e 100 mcg/ml for IP use 2021 active Not Available Not Available Not Avai lable MORPHINE SULFATE POWDER 100 % Morphine 20 mg/ml, Bupivaca ine 12 mg/ml and Fentanyl 125 mcg/ml and Clonidin e 100 mcg/ml total 22 ml for IP use 2024 active Not Available Not Available Not Avai lable MORPHINE SULFATE POWDER 100 % Morphine 20 mg/ml, Bupivaca ine 12 mg/ml and Fentanyl 125 mcg/ml and Clonidin e 100 mcg/ml total 22 ml for IP use 2023 active Not Available Not Available Not Avai lable MORPHINE SULFATE POWDER 100 % Morphine 20 mg/ml, Bupivaca ine 12 mg/ml and Fentanyl 125 mcg/ml and Clonidin e 100 mcg/ml total 22 ml for IP use 2022 active Not Available Not Available Not Avai lable MORPHINE SULFATE POWDER 100 % Morphine 20 mg/ml, Bupiv[place] ine 12 mg/ml and Fentanyl 125 mcg/ml and Clonidin e 100 mcg/ml total 22 ml for IP use 2022 active Not Available Not Available Not Avai lable MORPHINE SULFATE POWDER 100 % Morphine 20 mg/ml, Bupiv[place] ine 12 mg/ml and Fentanyl 125 mcg/ml and Clonidin e 100 mcg/ml for IP use 08/02 completed Not Available Not Available Not Available MORPHINE SULFATE POWDER 100 % Morphine 20 mg/ml, Bupivaca ine 12 mg/ml and Fentanyl 125 mcg/ml and Clonidin e 100 mcg/ml total 22 ml for IP use 2023 active Not Available Not Available Not Avai lable MORPHINE SULFATE POWDER 100 % Morphine 20 mg/ml, Bupivaca ine 12 mg/ml and Fentanyl 125 mcg/ml and Clonidin e 100 mcg/ml total 22 ml for IP use 2023 active Not Available Not Available Not Avai lable MORPHINE SULFATE POWDER 100 % Morphine 20 mg/ml, Bupivaca ine 12 mg/ml and Fentanyl 125 mcg/ml and Clonidin e 100 mcg/ml total 22 ml for IP use 2024 active Not Available Not Available Not Avai lable Neuropath ic Pain Cream 3 Apply 1-2 grams to the affected ardea 3-4 times daily 2023 active Not Available Not Available Not Avai lable MORPHINE SULFATE POWDER 100 % Morphine 20 mg/ml, Bupivaca ine 12 mg/ml and Fentanyl 125 mcg/ml and Clonidin e 100 mcg/ml for IP use 2021 active Not Available Not Available Not Avai lable MORPHINE SULFATE POWDER 100 % Morphine 20 mg/ml, Bupivaca ine 12 mg/ml and Fentanyl 125 mcg/ml and Clonidin e 100 mcg/ml total 22 ml for IP use 2024 active Not Available Not Available Not Avai lable MORPHINE SULFATE POWDER 100 % Morphine 20 mg/ml, Bupivaca ine 12 mg/ml and Fentanyl 125 mcg/ml and Clonidin e 100 mcg/ml total 22 ml for IP use 2022 active Not Available Not Available Not Avai lable MORPHINE SULFATE POWDER 100 % Morphine 20 mg/ml, Bupivaca ine 12 mg/ml and Fentanyl 125 mcg/ml and Clonidin e 100 mcg/ml total 22 ml for IP use 2022 active Not Available Not Available Not Avai lable MORPHINE SULFATE POWDER 100 % Morphine 20 mg/ml, Bupivaca ine 12 mg/ml and Fentanyl 125 mcg/ml and Clonidin e 100 mcg/ml for IP use 2022 active Not Available Not Available Not Avai lable MORPHINE SULFATE POWDER 100 % Morphine 20 mg/ml, Bupivaca ine 12 mg/ml and Fentanyl 125 mcg/ml and Clonidin e 100 mcg/ml total 22 ml for IP use 2023 active Not Available Not Available Not Avai lable MORPHINE SULFATE POWDER 100 % Morphine 20 mg/ml, Bupivaca ine 12 mg/ml and Fentanyl 125 mcg/ml and Clonidin e 100 mcg/ml total 22 ml for IP use 2024 active Not Available Not Available Not Avai lable MORPHINE SULFATE POWDER 100 % Morphine 20 mg/ml, Bupivaca ine 12 mg/ml and Fentanyl 125 mcg/ml and Clonidin e 100 mcg/ml total 22 ml for IP use 2023 active Not Available Not Available Not Avai lable MORPHINE SULFATE POWDER 100 % Morphine 20 mg/ml With Bupivaca ine 12mg/ml, Fentanyl 125 mcg/ml Clonidin e 100 mcg/ml for IP use 2021 active Not Available Not Available Not Avai lable MORPHINE SULFATE POWDER 100 % Morphine 20 mg/ml, Bupivaca ine 12 mg/ml and Fentanyl 125 mcg/ml and Clonidin e 100 mcg/ml total 22 ml for IP use 2022 active Not Available Not Available Not Avai lable MORPHINE SULFATE POWDER 100 % Morphine 20 mg/ml, Bupivaca ine 12 mg/ml and Fentanyl 125 mcg/ml and Clonidin e 100 mcg/ml total 22 ml for IP use 2024 active Not Available Not Available Not Avai lable Miralax 17 gram oral powder packet PRN 12/12 completed done Not Available Not Available Not Available amantadin e HCl 100 mg tablet active Not Available Not Available No t Available amoxicill in 500 mg capsule 08/08 completed Not Available Not Available Not Available pilocarpi ne 5 mg tablet TAKE 1 TABLET BY MOUTH THREE TIMES DAILY active Not Available Not Available No t Available gabapenti n 600 mg tablet 1 tab Qhs (3 ms) 05/09 completed Not Available Not Available Not Available ciproflox acin 750 mg tablet TAKE ONE TABLET BY MOUTH TWICE DAILY FOR 10 DAYS -- FINISH ALL MEDICINE -- active Not Available Not Available No t Available cetirizin e 10 mg tablet Take 1 daily 02/07 completed Not Available Not Available Not Available atorvasta tin 10 mg tablet TAKE ONE TABLET BY MOUTH EVERY DAY AT BEDTIME active Not Available Not Available No t Available Lortab 7.5 mg-500 mg tablet TID prn 09/28 completed Disconti nued by system because copied to new Rx. Not Available Not Available Not Available dexametha sone 6 mg tablet TAKE 1 TABLET BY MOUTH DAILY WITH FOOD 08/08 completed Not Available Not Available Not Available ciproflox acin 500 mg tablet TAKE ONE TABLET BY MOUTH TWICE DAILY FOR 10 DAYS -- FINISH ALL MEDICINE -- active Not Available Not Available No t Available omeprazol e 40 mg capsule,d elayed release Take 1 daily 12/12 completed done Not Available Not Available Not Available levothyro xine 25 mcg tablet TAKE ONE TABLET BY MOUTH EVERY DAY active Not Available Not Available No t Available meloxicam 7.5 mg tablet TAKE 1 TABLET BY MOUTH EVERY DAY AT BEDTIME active Not Available Not Available No t Available Mobic 15 mg tablet Take 1 po Q day with food 03/05 completed Not Available Not Available Not Available Zofran 4 mg tablet Take 1 every 6 hours as needed 03/05 completed Not Available Not Available Not Available terbinafi ne HCl 250 mg tablet 03/05 completed Not Available Not Available Not Available morphine (bulk) 100 % powder Morphine 20 mg/ml With Bupivaca ine 12mg/ml, Fentanyl 125 mcg/ml Clonidin e 100 mcg/ml for IP use 08/02 completed Not Available Not Available Not Available prednisol one acetate 1 % eye drops,rajat pension instill 1 drop IN THE LEFT EYE FOUR TIMES DAILY FOR 7 DAYS --SHAKE WELL BEFORE USE-- active Not Available Not Available No t Available gentamici n 0.3 % eye drops active Not Available Not Available No t Available Robaxin 500 mg tablet Take 1 twice daily 11/09 completed Not Available Not Available Not Available amitripty line 10 mg tablet TAKE 1 TABLET BY MOUTH AT BEDTIME FOR SLEEP active Not Available Not Available No t Available Betasept Surgical Scrub 4 % topical liquid SHOWER EACH DAY WITH SOLUTION FOR 5 DAYS BEGINNIN G 5 DAYS BEFORE SURGERY 08/08 completed Not Available Not Available Not Available cephalexi n 500 mg capsule TAKE 1 CAPSULE BY MOUTH TWICE DAILY FOR 10 DAYS 08/08 completed Not Available Not Available Not Available pantopraz ole 40 mg tablet,de layed release Take 1 daily 05/26 completed Old rx Not Available Not Available Not Available ranitidin e 150 mg tablet Take 1 daily 05/26 completed Old rx Not Available Not Available Not Available cevimelin e 30 mg capsule TAKE 1 CAPSULE BY MOUTH THREE TIMES DAILY active Not Available Not Available No t Available lidocaine 5 % topical patch APPLY 1 PATCH TOPICALL Y TO THE AFFECTED AREA ONCE DAILY AND LEAVE IN PLACE FOR 12 HOURS, THEN REMOVE AND LEAVE OFF FOR 12 HOURS DIRECTED active Not Available Not Available No t Available minoxidil 10 mg tablet TAKE ONE TABLET BY MOUTH EVERY DAY active Not Available Not Available No t Available gabapenti n 300 mg capsule 1 tab for 3 days and 1 tab BID for 3 days and 1 tab TID for the rest of month. 05/26 completed Old Rx Not Available Not Available Not Available mupirocin 2 % topical ointment 08/08 completed Not Available Not Available Not Available ergocalci ferol (vitamin D2) 1,250 mcg (50,000 unit) capsule TAKE ONE CAPSULE BY MOUTH ONCE A WEEK FOR vitamin d deficien cy active Not Available Not Available No t Available Indocin SR 75 mg capsule,e xtended release 1 po QD AC prn pain 10/07 completed insuranc e does not pay --- DC'd by Dr. Bah Not Available Not Available Not Available azelastin e 137 mcg (0.1 %) nasal spray INSTILL 2 SPRAYS in each nostril TWICE DAILY DIRECTED active Not Available Not Available No t Available Provigil 200 mg tablet TAKE ONE TABLET BY MOUTH TWICE DAILY FOR excessiv e sleepine ss active Not Available Not Available No t Available Rapidan 7.5 mg-325 mg tablet 1 po TID prn pain 05/26 completed old rx's Not Available Not Available Not Available fluticaso ne propionat e 50 mcg/actua tion nasal spray,rajat pension SHAKE LIQUID AND USE 1 SPRAY IN EACH NOSTRIL EVERY DAY FOR ALLERGIE S 08/08 completed Not Available Not Available Not Available phentermi ne 37.5 mg capsule Take 1 daily 12/17 completed OLD RX Not Available Not Available Not Available amoxicill in 500 mg-potass ium clavulana te 125 mg tablet TAKE 1 TABLET BY MOUTH THREE TIMES DAILY 08/08 completed Not Available Not Available Not Available tobramyci n 0.3 %-dexamet hasone 0.1 % eye drops,rajat pension INSTILL 1 DROP IN BOTH EYES 3 TIMES DAILY FOR 3 TO 4 DAYS active Not Available Not Available No t Available morphine 10 mg/mL injection syringe MARCAINE 8.0 mg/mL FENTANYL 50.0 mcg/mL CLONIDIN E 50.0 mcg/mL Intrathe ghazala pump med 12/05 completed old rx\x0d\x 0a Not Available Not Available Not Available cyclospor ine 0.05 % eye drops in a dropperet te INSTILL 1 DROP IN EACH EYE TWICE DAILY active Not Available Not Available No t Available nitrofura ntoin monohydra te/macroc rystals 100 mg capsule TAKE 1 CAPSULE BY MOUTH TWICE DAILY FOR 7 DAYS 08/08 completed Not Available Not Available Not Available lactulose 10 gram/15 mL oral solution 15ml qd prn constipa tion 03/05 completed per Radha Not Available Not Available Not Available Allergy Relief and Nasal Decongest ant 10 mg-240 mg tablet,ex tended rel TAKE ONE TABLET BY MOUTH DAILY active Not Available Not Available No t Available pregabali n 50 mg capsule TAKE ONE CAPSULE BY MOUTH TWICE DAILY active Not Available Not Available No t Available Amitiza 24 mcg capsule Take 1-2 tablets daily as needed 11/30 completed Disconti nued by system because copied to new Rx. Not Available Not Available Not Available levocetir izine 5 mg tablet TAKE 1 TABLET BY MOUTH EVERY NIGHT 08/08 completed Not Available Not Available Not Available Protonix 40 mg granules delayed-r elease packet Take 1 four times a day 03/05 completed Not Available Not Available Not Available cholecalc iferol (vitamin D3) 50 mcg (2,000 unit) capsule TAKE ONE CAPSULE BY MOUTH EVERY DAY active Not Available Not Available No t Available Maria R Allergy 60 mg tablet daily 2013 active Not Available Not Available Not Avai lable Biotene Dry Mouth Oral Rinse mouthwash 08/08 completed Not Available Not Available Not Available Narcan 4 mg/actuat ion nasal spray 1 nasal spray for Narcotic s overdose , 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) 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 active Not Available Not Available Not Avai lable Xiidra 5 % eye drops in a dropperet te INSTILL 1 DROP IN EACH EYE TWICE DAILY active Not Available Not Available No t Available Flonase Sensimist 27.5 mcg/actua tion nasal spray,rajat pension SHAKE LIQUID AND USE 2 SPRAYS IN EACH NOSTRIL DAILY active Not Available Not Available No t Available COVID-19 test specimen collectio n Covid 19 antigen Please FAX results to 2020 active Not Available Not Available Not Avai lable BinaxNOW COVID-19 Ag Self Test kit TEST DIRECTED TODAY active Not Available Not Available No t Available hydroxych loroquine 100 mg tablet TAKE 1 TABLET BY MOUTH TWICE DAILY active Not Available Not Available No t Available Vitals Date Recorded Body height Body temperature Body mass index (BMI) Body weight Respiratory rate Systolic And Diastolic Provider Name and Address Organization Details Last Updated DateTime 5 154.94 cm 98.6 [degF] 24.6 kg/m2 79019.0 1 g 6 /min 112/73 mm[Hg] Fatemeh [facility] 5 13:46:16 Date Recorded Body height Body mass index (BMI) Body weight Body temperature Heart rate Respiratory rate Systolic And Diastolic Provider Name and Address Organization Details Last Updated DateTime 5 154.94 cm 24.6 kg/m2 88790.0 1 g 98.4 [degF] 79 /min 6 /min 106/74 mm[Hg] Annie [facility] 5 14:32:37 Date Recorded Body height Body mass index (BMI) Body weight Body temperature Heart rate Respiratory rate Systolic And Diastolic Provider Name and Address Organization Details Last Updated DateTime 5 154.94 cm 233.5 kg/m2 140147. 17 g 98.6 [degF] 80 /min 16 /min 108/76 mm[Hg] [facility] 5 15:11:32 Date Recorded Body height Respiratory rate Body mass index (BMI) Body weight Heart rate Systolic And Diastolic Provider Name and Address Organization Details Last Updated DateTime 5 154.94 cm 16 /min 23.6 kg/m2 66855.0 5 g 80 /min 104/71 mm[Hg] Jannie [facility] 5 14:49:20 Social History Question Answer Notes LastModified by Organizat ion Details LastModified Time Tobacco Smoking Status Former Smoker E CIG. WINNIE [facility] 06/23/2022 15:02:28 What Is Your Level Of Caffeine Consumption? None [email or web address] Information not available 03/10/2022 Sex: Female Functional Status Question Answer Note LastModified by [employer] ion Details LastModified Time Do you or have you ever used any other forms of tobacco or nicotine? Yes [email or web address] Information not available 03/10/2022 What is your level of alcohol consumption? None [email or web address] Information not available 03/10/2022 Do you or have you ever used e-cigarettes or vape? Current user of electronic cigarettes [email or web address] Information not available 03/10/2022 Mental Status None recorded. Family History Nothing Reported. Medical History No medical history recorded. Gynecological HistoryNo gynecological history recorded. 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 [id number] GABRIEL Schmidt [address] [place] [id number] 4 04/27/2022 14:19:00 04/27/2022 16:31:51 Long-term current use of opiate analgesic drug [id number] 40766 Z79.891 Diagnostic /Lab: Order Presumptiv e UDT (necessary for rapid results) with Definitive confirmati on for chronic pain patient, to define treatment and reinforce therapeuti c compliance ; the following apply:*Pat ient is receiving controlled medication s.Presumpt cass UDT to identify presence of illicit/no n-prescrib ed substance( s) - Confirm positive for ongoing safe prescribin g of controlled substances .*Presumpt cass UDT to identify presence of licit/pres cribed substance( s)-Confirm unexpected results, identify specific drug(s) in large class and ensure appropriat e use of prescribed medication (s).*Defin itive UDT inadequate ly detected by Presumptiv e UDT (gabapenti n, pregabalin , tramadol, fentanyl, tapentadol and carisoprod ol). 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 LINNETTE is approachin g, replacemen t is expected. Intratheca l implantable infusion pump in situ 2698151266 Z97.8 [id number] GABRIEL Schmidt [address] [place] [address] 4 08/18/2022 14:53:25 08/19/2022 12:07:42 Lumbar post-laminectomy syndrome 858173946 M96.1 Low back pain 801813714 M54.50 [id number] GABRIEL Schmidt [address] [place] [address] 4 11/17/2022 15:05:13 11/27/2022 16:48:36 Lumbosacral spondylosis with radiculopathy 788661577 M47.27 Lumbar post-laminectomy syndrome 111808431 M96.1 Low back pain 047265090 M54.50 [id number] GABRIEL Schmidt [address] [place] [address] 4 01/12/2023 15:15:02 01/20/2023 17:58:01 Lumbar post-laminectomy syndrome 373505909 M96.1 Lumbosacra l spondylosis with radiculopathy 123792772 M47.27 Degenerati on of lumbar intervertebral disc 48004893 M51.36 Low back pain 723872739 M54.50 5% lidocaine topical patch at need. Will call for refill [id number] GABRIEL Schmidt [address] [address] 4 03/09/2023 15:15:57 03/11/2023 10:15:40 Lumbosacral spondylosis with radiculopathy 781988211 M47.27 Lumbar post-laminectomy syndrome 254564415 M96.1 Low back pain 407864109 M54.50 5% lidocaine topical patch at need. Will call for refill Long-term current use of opiate analgesic drug 4411659936 38549 Z79.891 Diagnostic /Lab: Order Presumptiv e UDT (necessary for rapid results) with Definitive confirmati on for chronic pain patient, to define treatment and reinforce therapeuti c compliance ; the following apply:*Pat ient is receiving controlled medication s.Presumpt cass UDT to identify presence of illicit/no n-prescrib ed substance( s) - Confirm positive for ongoing safe prescribin g of controlled substances .*Presumpt cass UDT to identify presence of licit/pres cribed substance( s)-Confirm unexpected results, identify specific drug(s) in large class and ensure appropriat e use of prescribed medication (s).*Defin itive UDT inadequate ly detected by Presumptiv e UDT (gabapenti n, pregabalin , tramadol, fentanyl, tapentadol and carisoprod ol). Drug Classes: (Amp, Jessie, Shaheen, Bup, THC, WALKER, ETOH, Meth, Op, Oxy, U-Creat) Degenerati on of lumbar intervertebral disc 50602231 M51.36 [id number] GABRIEL Schmidt [address] [address] 04/26/2023 14:52:51 04/29/2023 07:32:38 Lumbar post-laminectomy syndrome 244908106 M96.1 Low back pain 363574542 M54.50 5% lidocaine topical patch at need. Will call for refill Lumbosacra l spondylosis with radiculopathy 124548992 M47.27 Long-term current use of opiate analgesic drug 2756259753 22024 Z79.891 Diagnostic /Lab: Order Presumptiv e UDT (necessary for rapid results) with Definitive confirmati on for chronic pain patient, to define treatment and reinforce therapeuti c compliance ; the following apply:*Pat ient is receiving controlled medication s.Presumpt cass UDT to identify presence of illicit/no n-prescrib ed substance( s) - Confirm positive for ongoing safe prescribin g of controlled substances .*Presumpt cass UDT to identify presence of licit/pres cribed substance( s)-Confirm unexpected results, identify specific drug(s) in large class and ensure appropriat e use of prescribed medication (s).*Defin itive UDT inadequate ly detected by Presumptiv e UDT (gabapenti n, pregabalin , tramadol, fentanyl, tapentadol and carisoprod ol). Drug Classes: (Amp, Jessie, Shaheen, Bup, THC, WALKER, ETOH, Meth, Op, Oxy, U-Creat) Degenerati on of lumbar intervertebral disc 57646560 M51.[id number] [facility] [place] [address] 06/16/2023 14:39:51 06/23/2023 10:00:55 Lumbar post-laminectomy syndrome 624257239 M96.1 Low back pain 429128121 M54.50 5% lidocaine topical patch at need. Will call for refill Lumbosacra l spondylosis with radiculopathy 854006144 M47.27 Lumbar radiculopathy 128 267468 M54.16 Long-term current use of opiate analgesic drug 2190999302 45330 Z79.891 Diagnostic /Lab: Order Presumptiv e UDT (necessary for rapid results) with Definitive confirmati on for chronic pain patient, to define treatment and reinforce therapeuti c compliance ; the following apply:*Pat ient is receiving controlled medication s.Presumpt cass UDT to identify presence of illicit/no n-prescrib ed substance( s) - Confirm positive for ongoing safe prescribin g of controlled substances .*Presumpt cass UDT to identify presence of licit/pres cribed substance( s)-Confirm unexpected results, identify specific drug(s) in large class and ensure appropriat e use of prescribed medication (s).*Defin itive UDT inadequate ly detected by Presumptiv e UDT (gabapenti n, pregabalin , tramadol, fentanyl, tapentadol and carisoprod ol). Drug Classes: (Amp, Jessie, Shaheen, Bup, THC, WALKER, ETOH, Meth, Op, Oxy, U-Creat) Degenerati on of lumbar intervertebral disc 02152057 M51.36 [id number] GABRIEL Schmidt [address] [place], [place] [address] 08/09/2023 14:22:56 08/10/2023 08:17:34 Long-term current use of opiate analgesic drug 8014504341 58507 Z79.891 Diagnostic /Lab: Order Presumptiv e UDT (necessary for rapid results) with Definitive confirmati on for chronic pain patient, to define treatment and reinforce therapeuti c compliance ; the following apply:*Pat ient is receiving controlled medication s.Presumpt cass UDT to identify presence of illicit/no n-prescrib ed substance( s) - Confirm positive for ongoing safe prescribin g of controlled substances .*Presumpt cass UDT to identify presence of licit/pres cribed substance( s)-Confirm unexpected results, identify specific drug(s) in large class and ensure appropriat e use of prescribed medication (s).*Defin itive UDT inadequate ly detected by Presumptiv e UDT (gabapenti n, pregabalin , tramadol, fentanyl, tapentadol and carisoprod ol). Drug Classes: (Amp, Jessie, Shaheen, Bup, THC, WALKER, ETOH, Meth, Op, Oxy, U-Creat) Lumbar post-laminectomy syndrome 770237221 M96.1 Low back pain 481420825 M54.50 5% lidocaine topical patch at need. Will call for refill Lumbosacra l spondylosis with radiculopathy 634815370 M47.27 Lumbar radiculopathy 128 304938 M54.16 Degenerati on of lumbar intervertebral disc 35845318 M51.36 [id number] GABRIEL Schmidt [address] [place] [address] 10/04/2023 13:58:10 10/07/2023 08:00:54 Lumbar post-laminectomy syndrome 323130785 M96.1 Low back pain 779698052 M54.50 5% lidocaine topical patch at need. Will call for refill Lumbosacra l spondylosis with radiculopathy 810047195 M47.27 Long-term current use of opiate analgesic drug 1336958895 08960 Z79.891 Diagnostic /Lab: Order Presumptiv e UDT (necessary for rapid results) with Definitive confirmati on for chronic pain patient, to define treatment and reinforce therapeuti c compliance ; the following apply:*Pat ient is receiving controlled medication s.Presumpt cass UDT to identify presence of illicit/no n-prescrib ed substance( s) - Confirm positive for ongoing safe prescribin g of controlled substances .*Presumpt cass UDT to identify presence of licit/pres cribed substance( s)-Confirm unexpected results, identify specific drug(s) in large class and ensure appropriat e use of prescribed medication (s).*Defin itive UDT inadequate ly detected by Presumptiv e UDT (gabapenti n, pregabalin , tramadol, fentanyl, tapentadol and carisoprod ol). Drug Classes: (Amp, Jessie, Shaheen, Bup, THC, WALKER, ETOH, Meth, Op, Oxy, U-Creat) [id number] GABRIEL Schmidt [address] [place] [id number] 4 11/29/2023 14:11:05 12/01/2023 08:05:00 Lumbar post-laminectomy syndrome 116042815 M96.1 Low back pain 720822240 M54.50 5% lidocaine topical patch at need. Will call for refill Lumbosacra l spondylosis with radiculopathy 687201329 M47.27 [id number] Edie Shetty APRN [address] [place], [place] [address] 01/20/2024 14:35:19 01/21/2024 10:15:10 Lumbar post-laminectomy syndrome 710297731 M96.1 Low back pain 001090524 M54.50 5% lidocaine topical patch at need. Will call for refill Lumbosacra l spondylosis with radiculopathy 123319472 M47.27 Lumbar radiculopathy 128 708645 M54.16 Chronic ne uropathic pain 743706145 M79.2 [id number] Edie Shetty, [employer] INSPECTOR [address] [address] 4 03/14/2024 14:41:11 03/15/2024 16:04:15 Long-term current use of opiate analgesic drug 7206305003 48234 Z79.891 Diagnostic /Lab: Order Presumptiv e UDT (necessary for rapid results) with Definitive confirmati on for chronic pain patient, to define treatment and reinforce therapeuti c compliance ; the following apply: [Presumpti ve UDT includes: (Amp, Jessie, Shaheen, Bup, THC, WALKER, ETOH, Meth, Opi, Oxy )] *-Patient is receiving controlled medication s. *-Presumpt cass UDT to identify presence of illicit/no n-prescrib ed substance( s) - Confirm positive for ongoing safe prescribin g of controlled substances . *-Presumpt cass UDT to identify presence of licit/pres cribed substance( s)-Confirm unexpected results, identify specific drug(s) in large class and ensure appropriat e use of prescribed medication (s). *-Definiti ve UDT inadequate ly detected by Presumptiv e UDT (gabapenti n, pregabalin , tramadol, fentanyl, tapentadol and carisoprod ol). HP1 (CBC/Renal /Hepatic/G GT) CBC - ordered to monitor the effects of prescribed medication s. Renal/Hepa tic/GGT - ordered to monitor toxicity of renal hepatic function due to medication . Lumbar post-laminectomy syndrome 372348123 M96.1 Low back pain 311318779 M54.50 Lumbosacra l spondylosis with radiculopathy 481742211 M47.27 Lumbar radiculopathy 128 949052 M54.16 Chronic ne uropathic pain 022344998 M79.2 [id number] Edie Shetty, [employer] INSPECTOR [address] [place] [address] 05/02/2024 14:08:46 05/05/2024 11:31:18 Long-term current use of opiate analgesic drug 5266754013 07583 Z79.891 Lumbar post-laminectomy syndrome 964152074 M96.1 Low back pain 452157153 M54.50 Lumbosacra l spondylosis with radiculopathy 414488902 M47.27 Lumbar radiculopathy 128 518941 M54.16 Chronic ne uropathic pain 928322524 M79.2 [id number] Eide Shetty, SEW[employer] INSPECTOR [address] [address] 4 06/22/2024 14:32:10 06/22/2024 16:12:24 Long-term current use of opiate analgesic drug 0784235455 44563 Z79.891 Diagnostic /Lab: Order Presumptiv e UDT (necessary for rapid results) with Definitive confirmati on for chronic pain patient, to define treatment and reinforce therapeuti c compliance ; the following apply: [Presumpti ve UDT includes: (Amp, Jessie, Shaheen, Bup, THC, WALKER, ETOH, Meth, Opi, Oxy )] *-Patient is receiving controlled medication s. *-Presumpt cass UDT to identify presence of illicit/no n-prescrib ed substance( s) - Confirm positive for ongoing safe prescribin g of controlled substances . *-Presumpt cass UDT to identify presence of licit/pres cribed substance( s)-Confirm unexpected results, identify specific drug(s) in large class and ensure appropriat e use of prescribed medication (s). *-Definiti ve UDT inadequate ly detected by Presumptiv e UDT (gabapenti n, pregabalin , tramadol, fentanyl, tapentadol and carisoprod ol). Lumbar post-laminectomy syndrome 485214084 M96.1 Low back pain 579591808 M54.50 Lumbosacra l spondylosis with radiculopathy 512643599 M47.27 Lumbar radiculopathy 128 440422 M54.16 Chronic ne uropathic pain 419803281 M79.2 [id number] Edie Shetty, SEW[employer] INSPECTOR [address] [place] [address] 08/10/2024 13:51:57 08/11/2024 08:38:40 Long-term current use of opiate analgesic drug 8622467308 68718 Z79.891 Lumbar post-laminectomy syndrome 682497829 M96.1 Low back pain 432157429 M54.50 Lumbosacra l spondylosis with radiculopathy 414820562 M47.27 Lumbar radiculopathy 128 132835 M54.16 Chronic ne uropathic pain 993445708 M79.2 Inflammati on of sacroiliac joint 22092584 M46.1 [id number] Edieluis carlos Shetty, SEWER INSPECTOR [address] [facility] [address] [place] [address] 10/03/2024 14:07:12 10/04/2024 08:23:35 Long-term current use of opiate analgesic drug 5861022178 16637 Z79.891 Diagnostic /Lab: Order Presumptiv e UDT (necessary for rapid results) with Definitive confirmati on for chronic pain patient, to define treatment and reinforce therapeuti c compliance ; the following apply: [Presumpti ve UDT includes: (Amp, Jessie, Shaheen, Bup, THC, WALKER, ETOH, Meth, Opi, Oxy )] *-Patient is receiving controlled medication s. *-Presumpt cass UDT to identify presence of illicit/no n-prescrib ed substance( s) - Confirm positive for ongoing safe prescribin g of controlled substances . *-Presumpt cass UDT to identify presence of licit/pres cribed substance( s)-Confirm unexpected results, identify specific drug(s) in large class and ensure appropriat e use of prescribed medication (s). *-Definiti ve UDT inadequate ly detected by Presumptiv e UDT (gabapenti n, pregabalin , tramadol, fentanyl, tapentadol and carisoprod ol). Lumbar post-laminectomy syndrome 114948972 M96.1 Inflammati on of sacroiliac joint 35569062 M46.1 Lumbosacra l spondylosis with radiculopathy 182255712 M47.27 Low back pain 622576225 M54.50 Lumbar radiculopathy 128 620831 M54.16 Chronic ne uropathic pain 101497884 M79.2 [id number] Edie CullenDariel Shetty, SEWER INSPECTOR [address] [facility] [address] [place] [address] 11/23/2024 13:55:00 11/23/2024 14:54:03 Long-term current use of opiate analgesic drug 9351532563 69834 Z79.891 Lumbar post-laminectomy syndrome 879607451 M96.1 Inflammati on of sacroiliac joint 02147043 M46.1 Lumbosacra l spondylosis with radiculopathy 400954545 M47.27 Low back pain 706780320 M54.50 Lumbar radiculopathy 128 632551 M54.16 Chronic ne uropathic pain 628067918 M79.2 [id number] Edie AlyseDariel Shetty, SEWER INSPECTOR [address] [address] 01/11/2025 13:24:02 01/11/2025 16:47:57 Long-term current use of opiate analgesic drug 9624912651 51207 Z79.891 Diagnostic /Lab: Order Presumptiv e UDT (necessary for rapid results) with Definitive confirmati on for chronic pain patient, to define treatment and reinforce therapeuti c compliance ; the following apply:*Pat ient is receiving controlled medication s.Presumpt cass UDT to identify presence of illicit/no n-prescrib ed substance( s) - Confirm positive for ongoing safe prescribin g of controlled substances .*Presumpt cass UDT to identify presence of licit/pres cribed substance( s)-Confirm unexpected results, identify specific drug(s) in large class and ensure appropriat e use of prescribed medication (s).*Defin itive UDT inadequate ly detected by Presumptiv e UDT (gabapenti n, pregabalin , tramadol, fentanyl, tapentadol and carisoprod ol). Drug Classes: (Amp, Jessie, Shaheen, Bup, THC, WALKER, ETOH, Meth, Op, Oxy, U-Creat) HP1 (CBC/Renal /Hepatic/G GT) CBC - ordered to monitor the effects of prescribed medication s. Renal/Hepa tic/GGT - ordered to monitor toxicity of renal hepatic function due to medication . Lumbar post-laminectomy syndrome 758458024 M96.1 Inflammati on of sacroiliac joint 78687042 M46.1 Lumbosacra l spondylosis with radiculopathy 347310787 M47.27 Low back pain 031932145 M54.50 Lumbar radiculopathy 128 735190 M54.16 Chronic ne uropathic pain 398859401 M79.2 [id number] Beto Carter MD [facility] [address] 03/05/2025 14:23:31 03/13/2025 16:53:28 Long-term current use of opiate analgesic drug 2303778279 57063 Z79.891 Diagnostic /Lab: Order Presumptiv e UDT (necessary for rapid results) with Definitive confirmati on for chronic pain patient, to define treatment and reinforce therapeuti c compliance ; the following apply:[Pre sumptive UDT includes: (Amp, Jessie, Shaheen, Bup, THC, WALKER, ETOH, Meth, Opi, Oxy )]*-Patien t is receiving controlled medication s.*-Presum ptive UDT to identify presence of illicit/no n-prescrib ed substance( s) - Confirm positive for ongoing safe prescribin g of controlled substances .*-Presump tive UDT to identify presence of licit/pres cribed substance( s)-Confirm unexpected results, identify specific drug(s) in large class and ensure appropriat e use of prescribed medication (s). _*-Definit cass UDT inadequate ly detected by Presumptiv e UDT (gabapenti n, pregabalin , tramadol, fentanyl, tapentadol and carisoprod ol).HP1 (CBC/Renal /Hepatic/G GT) CBC - ordered to monitor the effects of prescribed medication s. Renal/Hepa tic/GGT - ordered to monitor toxicity of renal hepatic function due to medication . 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 341069685 G89.21 Degenerati on of lumbar intervertebral disc 32897172 M51.362 9211129355 Degenerati on of lumbosacral intervertebral disc 31465113 M51.372 4135960069 Low back pain 528255243 M54.50 Lumbar post-laminectomy syndrome 181600243 M96.1 Lumbar spo ndylosis with myelopathy 31618738 M47.16 [id number] Edie Shetty, SEWER INSPECTOR [address] [place] [address] 04/24/2025 15:01:12 04/25/2025 07:46:38 Long-term current use of opiate analgesic drug 7886212474 33936 Z79.891 Cervical radiculopathy 38464376 M54.12 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 208868105 G89.21 Degenerati on of lumbar intervertebral disc 65754604 M51.362 3318720469 Degenerati on of lumbosacral intervertebral disc 89752062 M51.372 9933831842 Low back pain 954454533 M54.50 Lumbar post-laminectomy syndrome 843177072 M96.1 Lumbar spo ndylosis with myelopathy 78494375 M47.16 Inflammati on of sacroiliac joint 45969273 M46.1 Lumbosacra l spondylosis with radiculopathy 116512609 M47.27 Lumbar radiculopathy 128 753928 M54.16 Chronic ne uropathic pain 219931428 M79.2 [id number] Edie Shetty, SEWER INSPECTOR [address] [place] [address] 06/14/2025 14:44:53 06/22/2025 21:54:47 Long-term current use of opiate analgesic drug 6492107395 54109 Z79.891 [id number] Diagnostic /Lab: Order Presumptiv e UDT (necessary for rapid results) with Definitive confirmati on for chronic pain patient, to define treatment and reinforce therapeuti c compliance ; the following apply: [Presumpti ve UDT includes: (Amp, Jessie, Shaheen, Bup, THC, WALKER, ETOH, Meth, Opi, Oxy )] *-Patient is receiving controlled medication s. *-Presumpt cass UDT to identify presence of illicit/no n-prescrib ed substance( s) - Confirm positive for ongoing safe prescribin g of controlled substances . *-Presumpt cass UDT to identify presence of licit/pres cribed substance( s)-Confirm unexpected results, identify specific drug(s) in large class and ensure appropriat e use of prescribed medication (s). *-Definiti ve UDT inadequate ly detected by Presumptiv e UDT (gabapenti n, pregabalin , tramadol, fentanyl, tapentadol and carisoprod ol). Cervical radiculopathy 01021261 M54.12 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 109811468 G89.21 Degenerati on of lumbar intervertebral disc 53695377 M51.362 7060982626 Degenerati on of lumbosacral intervertebral disc 38952556 M51.372 7768824718 Low back pain 699637390 M54.50 Lumbar post-laminectomy syndrome 147400454 M96.1 Lumbar spo ndylosis with myelopathy 12400744 M47.16 Inflammati on of sacroiliac joint 74360674 M46.1 Lumbosacra l spondylosis with radiculopathy 651879354 M47.27 Lumbar radiculopathy 128 343016 M54.16 Chronic ne uropathic pain 589934676 M79.2 Health Concerns Section Related Observation LastModified by Organization Detai ls LastModified Time None Recorded Concern Status LastModified by Organization Details LastModified Time None Recorded Advance Directives Directive None Recorded Payers Insurance Date Sequence Insurance Name Policy Number Policy Coffey Covered Member ID Coffey Member ID Guarantor Name 01/20/2024 1 [employer] (MEDICARE REPLACEMENT/AD VANTAGE - HMO) Opal Garzon [id number] Opal Garzon 09/07/2024 1 [employer] (MEDICAID HMO) Opal Garzon [id number] Opal Garzon 06/11/2025 1 [facility] ([facility] REPLAC[facility] - HMO) Opal Garzon [id number] Opal Garzon Notes Date Note Type Note Provider Name and Address Organization Details Recorded Time 01/11/2025 text/html ROS as noted in the HPI Patient is followed for chronic back pain. She is overall stable with her IP treatment. She says that she has an apt with boat engine mechanic in May. She says that she believes that she has psoriatic arthritis. She says that other than this she feels that she is doing well and she feels that the IP is helping her a great deal with her pain. She expresses her understanding about the complex of the formula and the dose in general. she says that she feels anxious about any change. hate change she says. So any attempt of tapering or simplify the IP formula or dosage has been held without progress. She has no complaint of the current regimen. She consider the IP has changed her life. She does not want any oral medication. Today, IP refilled without any difficulty. NO change made today. LBP Hx: Microdiscectomy at L5-S1 followed by one more herniation 1 yr after then 1xL laser surgery and 1 x lumbar fusion in 2006, she said the original left leg weakness and pain turned to Rt side weakness and pain right after the second surgery and Sx stayed as a major problem for these years. Edie Shetty, JUANITA [address] [facility], [place], [address], [facility] 02/03/2025 15:16:08 03/05/2025 text/html non billable visit. Patient saw MD same date. This is to document pump refill only Edie Shetty, JUANITA [address], [place], [address], [facility] 03/23/2025 11:57:46 03/05/2025 text/html Longstanding PTC pump patient, new to me, assuming care. 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 Now also being evaluated and treated for suspected RA. Patient has done extremely well with the pump and uses it solely for her pain control. Overall quite pleased with her level of pain control and desires no change. Has perioidic SI injections which are also quite helpful. Overall pleased with how she is doing and desires no change. Beto Carter MD [address] [facility] [address] , [place], [address], [facility] 03/05/2025 17:45:54 04/24/2025 text/html ROS as noted in the [facility] Patient is followed for chronic back pain. She is overall stable with her IP treatment. She says that she has an apt with boat engine mechanic in May. She says that she believes that she has psoriatic arthritis. She says that other than this she feels that she is doing well and she feels that the IP is helping her a great deal with her pain. She expresses her understanding about the complex of the formula and the dose in general. she says that she feels anxious about any change. hate change she says. So any attempt of tapering or simplify the IP formula or dosage has been held without progress. She has no complaint of the current regimen. She consider the IP has changed her life. She does not want any oral medication. Today, IP refilled without any difficulty. NO change made today. LBP Hx: Microdiscectomy at L5-S1 followed by one more herniation 1 yr after then 1xL laser surgery and 1 x lumbar fusion in 2006, she said the original left leg weakness and pain turned to Rt side weakness and pain right after the second surgery and Sx stayed as a major problem for these years. Edie Shetty APRN [address] [facility] [address] , [place], [address], [facility] 05/17/2025 10:09:45 06/14/2025 text/html ROS as noted in the [facility] Patient is followed for chronic back pain. She is overall stable with her IP treatment. She says that she has an apt with boat engine mechanic in May. She says that she believes that she has psoriatic arthritis. She says that other than this she feels that she is doing well and she feels that the IP is helping her a great deal with her pain. She expresses her understanding about the complex of the formula and the dose in general. she says that she feels anxious about any change. hate change she says. So any attempt of tapering or simplify the IP formula or dosage has been held without progress. She has no complaint of the current regimen. She consider the IP has changed her life. She does not want any oral medication. Today, IP refilled without any difficulty. NO change made today. LBP Hx: Microdiscectomy at L5-S1 followed by one more herniation 1 yr after then 1xL laser surgery and 1 x lumbar fusion in 2006, she said the original left leg weakness and pain turned to Rt side weakness and pain right after the second surgery and Sx stayed as a major problem for these years. Not Available Not Available Not Available OBGyn Episode No OBEpisode recorded.
--- OUTSIDE RECORDS SUMMARY | 2025-07-13 15:36 | XMS_ITS | Encounter Summary ---
Author Organization Healthcare Address [address] [place] [address] Care Team Providers Care Double Back Operator Name Role Phone Gita Rosales Primary Care Provider Tejas Garcia MD Unavailable [phone] Encounter Details Date Type Department Care Team (Late st Contact Info) Description 03/27/2025 Orders Only External Location [address] [place] [id number] Provider, External Social History Tobacco Use Types Packs/Day Years Used Date Smoking Tobacco: Never Assessed Comments Unknown Sex and Gender Information Value Date Recorded Sex Assigned at Not on file Legal Sex Female 8:34 PM EDT Gender Identity Not on file Sexual Orientation Not on file documented as of this encounter Plan of Treatment Not on file documented as of this encounter Procedures Procedure Name Priority Date/Time Associated Diagnosis Comments MR OUTSIDE IMAGES 03/27/2025 1:30 PM EDT documented in this encounter Results * MR transfer of outside films (03/27/2025 1:30 PM EDT) Anatomical Region Laterality Modality Magnetic Resonan ce 03/27/2025 1:30 PM EDT us External Provider IMG MRI PROCEDURES Final Resul t documented in this encounter Visit Diagnoses Not on filedocumented in this encounter Care Teams Double Back Operator Relationship Specialty Start Date End Date Gita Rosales PA [address] [place] [address] PCP - General 10/16/24 Tejas Garcia MD [address] [facility] [address] [place] [address] Surgeon Neurosurgery 04/26/25 documented as of this encounter
--- OUTSIDE RECORDS SUMMARY | 2025-07-13 15:36 | XMS_ITS | Clinical Summary ---
Author Organization [facility] Address [address] [place] [address] Phone Care Team Providers Care Digital Content Manager Name Role Phone Unavailable Primary Care Provider Unavailabl e Allergies Active Allergy Reactions Criticality Noted Date Comments Oxycodone Nausea And Vomiting, Other (See Comments) 02/23/2011 Oxycontin Tramadol Nausea And Vomiting 10/22/2010 Medications LEVOthyroxine (SYNTHROID) 25 mcg Oral Tablet Take 25 mcg by mouth daily. 2 Active lidocaine (LIDODERM) 5 % Top Adhesive Patch, Medicated daily. 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 Use in each nostril as directed 30 mL 5 4 Active UNABLE TO FIND Med Name: Morphine 20 mg/ml, Bupivacaine 12 mg/ml and Fentanyl 125 mcg/ml and Clonidine 100 mcg/ml total 22 ml for IP use Active Cholecalciferol, Vitamin D3, 50 mcg (2,000 unit) Oral Capsule Take 1 capsule every day by oral route for 90 days. 5 Active ergocalciferol (DRISDOL) 1,250 mcg (50,000 unit) Oral Capsule Take 1 capsule every week by oral route for 90 days, for Vitamin D deficiency. 5 Active minoxidiL (LONITEN) 10 mg Oral Tablet Take 1 tablet every day by oral route for 90 days. 5 Active ciprofloxacin HCl (CIPRO) 750 mg Oral Tablet TAKE ONE TABLET BY MOUTH TWICE DAILY FOR 10 DAYS -- FINISH ALL MEDICINE -- Active Active Problems Patient Care Coordination No te Formatting of this note migh t be different from the original. [facility] ENTAS Controlled report completed 12/21/2024 Informed consent signed 07/21/2024 # [id number] [facility] ENTAS Controlled report completed 08/20/2023 Informed consent signed 08/20/2023 #[id number] Problem Noted Date Diagnosed Date BMI 26.0-26.9,adult 07/15/2023 Overview (07/15/2023): Added automatically from request for surgery [id number] ANGEL (obstructive sleep apnea) 05/25/2023 Overview (05/25/2023): Added automatically from request for surgery [id number] Difficulty using continuous positive airway pressure (CPAP) device 05/25/2023 Overview (05/25/2023): Added automatically from request for surgery [id number] Snoring 05/25/2023 Overview (05/25/2023): Added automatically from request for surgery [id number] Hypertrophy of inferior nasal turbinate 05/25/20 Overview (05/25/2023): Added automatically from request for surgery [id number] Encounters Date Type Department Care Team Description 07/09/2025 Telephone [facility] Sleep Medicine [facility] [address] [facility] Building [address] [place] [phone] Zabrina Mckinney MA Patient Question from Last 3 Months Surgical History Surgery Date Site/Laterality Comments BACK SURGERY Bilateral X3. LOWER BACK, PAIN PUMP NOSE SURGERY SECTION COLONOSCOPY LARYNGOSCOPY 10/25/2023 N/A Drug Induced Sleep Endoscopy, Inferior Turbinate Resection; Surgeon: Tejas Marlow MD; Location: [facility]; Service: ENT HYPOGLOSSAL NERVE STIMULATOR IMPLANT SURGERY 12/22/2024 N/A HYPOGLOSSAL NERVE STIMULATOR IMPLANT; Surgeon: Tejas Marlow MD; Location: [facility]; Service: ENT Medical devices from this surgery are in the Medical Devices section. Medical History Medical History Date Comments Sleep apnea NO MACHINE Arthritis Thyroid disease Depression Anxiety and depression Motion sickness Neuropathy arms and hands Family History Medical History Relation Name Comments No Known Problems Brother No Known Problems Father No Known Problems Maternal Grandfather No Known Problems Maternal Grandmother No Known Problems Mother No Known Problems Other No Known Problems Paternal Grandfather No Known Problems Paternal Grandmother No Known Problems Sister Allergies Neg Hx Anesth Problems Neg Hx Bleeding Prob Neg Hx Cancer Neg Hx Hearing Loss Neg Hx Heart Disease Neg Hx Migraines Neg Hx Thyroid Disease Neg Hx Relation Name Status Comments Brother Daughter Alive Father Alive Maternal Grandfather Maternal Grandmother Mother Alive Other Paternal Grandfather Paternal Grandmother Sister Son Alive Social History Tobacco Use Types Packs/Day Years Used Date Smoking Tobacco: Former Cigarettes Smokeless Tobacco: Never Comments:Quit 2014 Alcohol Use Standard Drinks/Week Comments Never 0 (1 standard drink = 0.6 oz pur e alcohol) Comments No Sex and Gender Information Value Date Recorded Sex Assigned at Not on file Legal Sex Female 4:45 PM EDT Gender Identity Not on file Sexual Orientation Not on file Obstetrics History Last Filed Vital Signs Vital Sign Reading Time Taken Comments Blood Pressure 91/56 12/22/2024 2:46 PM EST Pulse 55 12/22/2024 2:46 PM EST Temperature 36.5 C (97.7 F) 12/28/2024 2:03 PM EDT Respiratory Rate 16 12/22/2024 2:46 PM EST Oxygen Saturation 93% 12/22/2024 2:46 PM EST Inhaled Oxygen Concentration - - Weight 63.6 kg (140 lb 2 oz) 12/28/2024 2:03 PM EDT Height 154.9 cm (5' 1 ) 12/28/2024 2:03 PM EDT Body Mass Index 26.48 12/28/2024 2:03 PM EDT Plan of Treatment Upcoming Encounters Date Type Department Care Team (Late st Contact Info) Description 07/17/2025 2:15 PM EDT Office Visit SEP Sleep Medicine [facility] [address] [facility] [address] [place] [address] Rosmaisha, Shay, WIRE WELDER [address] [place] [address] Health Maintenance Due Date Last Done Comments Annual Wellness Exam 1977 Hepatitis B Vaccine (1 of 3 - 19+ 3-dose series) 1993 Cervical Cancer Screening 1995 Pap Smear 1995 HPV/Pap Cotest 2004 Breast Cancer Screening 2014 Cologuard 2019 Colon Cancer Screening 2019 Colonoscopy 2019 FIT 2019 Sigmoidoscopy 2019 Virtual Colonography 2019 Zoster (2 of 2) 01/30/2025 12/05/2024 COVID-19 Vaccine (3 - 2024-2 6 season) 2025 02/28/2021, 02/07/2021 Influenza Vaccine (#1) 2025 Pneumococcal Vaccine 50+ (2 of 2 - PPSV23) 12/05/2025 12/05/2024 DTaP/TDaP/Td (2 - Td or Tdap) 05/23/2032 05/23/2022 Meningococcal B Vaccine Aged Out No l onger eligible based on patient's age to complete this topic Medical Devices Implanted Type Area Supervisor Rework Device Identifier Shelf Expiration Date Model / Serial / Lot Pain Pump System Lead Stimulation Nerve Electrical Implantable - [id number] Implanted:Qty: 1 on 12/22/2024 by Tejas Marlow MD at [facility] N/A: Neck [employer] 02/27/2027 [id number] / [id number] / Implant Sensing Lead F/ Patient Respiratory Pattern Monitoring - [id number] Implanted:Qty: 1 on 12/22/2024 by Tejas Marlow MD at [facility] N/A: Chest Wall [employer] 10/25/2026 [id number] / [id number] / Generator Implantable Pulse Cpap Iv - [id number] Implanted:Qty: 1 on 12/22/2024 by Tejas Marlow MD at [facility] N/A: Chest Wall [employer] 07/06/2027 [id number] / [id number] / Insurance
--- OUTSIDE RECORDS SUMMARY | 2025-07-13 15:36 | XMS_ITS | Clinical Summary ---
Author Organization [facility] Address [address] [place], [place] [address] Care Team Providers Care Automation And Control Engineer Name Role Phone Unavailable Primary Care Provider Unavailabl e Social History Tobacco Use Types Packs/Day Years Used Date Smoking Tobacco: Never Assessed Comments Unknown Sex and Gender Information Value Date Recorded Sex Assigned at Not on file Legal Sex Female 4:11 PM EST Gender Identity Not on file Sexual Orientation Not on file Plan of Treatment Health Maintenance Due Date Last Done Comments Breast Cancer Screening 1974 CT Colonography 1974 Colonoscopy 1974 Colorectal Cancer Screening 1974 FIT-DNA 1974 FIT 1974 FOBT 1974 Sigmoidoscopy 1974 Hepatitis B (HepB) Vaccine ( 1 of 3 - 19+ 3-dose series) 1993 Tdap/Td Vaccine >11 yo (1 - Tdap) 1993 Cervical Cancer Screening 1995 Pneumococcal Vaccines >50 yo (1 of 1 - PCV) 2024 Shingles (Shingrix) (1 of 2) 2024 Annual SDOH Screening 10/18/2024 Influenza Vaccine (#1) 2025 RSV 50+ and (1 - 1 -dose 75+ series) 2049 Haemophilus Influenzae Type B (Hib) Vaccine Aged Out No longer eligible b ased on patient's age to complete this topic Hepatitis A (HepA) Vaccine Aged Out N o longer eligible based on patient's age to complete this topic Meningococcal ACWY Aged Out No longer eligible based on patient's age to complete this topic Polio (IPV) Aged Out No longer eligi ble based on patient's age to complete this topic Rotavirus (RV) Vaccine Aged Out No lo nger eligible based on patient's age to complete this topic
--- OUTSIDE RECORDS SUMMARY | 2025-07-13 15:36 | XMS_ITS | Encounter Summary ---
Author Organization [place] [address] Care Team Providers Care Wildlife Manager Name Role Phone Unavailable Primary Care Provider Unavailabl e Reason for Visit * Reason Onset Date Comments Patient Question 07/09/2025 Encounter Details Date Type Department Care Team (Late st Contact Info) Description 07/09/2025 Telephone [facility] [address] [address] Zabrina Mckinney MA Patient Question Social History Tobacco Use Types Packs/Day Years [...] on file documented as of this encounter Miscellaneous Notes * Telephone Encounter - Ashley Mayberry MA - 07/10/2025 8:35 AM EDT LEFT PT VM TO CALL ME BACK * Telephone Encounter - Zabrina Mckinney MA - 07/09/2025 4:32 PM EDT Pt wants to know if her Inspire can be adjusted before her appt / Pt missed her last appt. She is scheduled for Aug 09 Please call and advise / lb documented in this encounter Plan of Treatment Upcoming Encounters Date Type Department Care Team (Late st Contact Info) Description 07/17/2025 2:15 PM EDT Office Visit SEP Sleep Medicine [facility] [address] [facility] [address] [place] [address] Shay Stevens, DRY CELL ASSEMBLY MACHINE TENDER [address] [place] [address] documented as of this encounter Visit Diagnoses Not on filedocumented in this encounter
--- OUTSIDE RECORDS SUMMARY | 2025-07-13 15:36 | XMS_ITS | Clinical Summary ---
Author Organization Healthcare Address [address] [place] [address] Care Team Providers Care Flux Mixer Name Role Phone Gita Rosales Primary Care Provider [phone] Tejas Garcia MD Unavailable [phone] Allergies Active Allergy Reactions Criticality Noted Date Comments Oxycodone Nausea And Vomiting, Itching,Unknown - Patient states they do not know rxn details Medium 02/23/2011 Oxycontin Tramadol Nausea And Vomiting, Other - please document in the comment field Low 10/22/2010 Medications levothyroxine (Synthroid, Levoxyl) 25 MCG tablet 4 Active cholecalciferol (Vitamin D-3) 50 MCG (1999) capsule Take by mouth daily. Active cycloSPORINE (Restasis) 0.05 % ophthalmic emulsion INSTILL 1 DROP IN EACH EYE TWICE DAILY Active gentamicin (Garamycin) 0.3 % ophthalmic solution Active tobramycin-dexame thasone (Tobradex) ophthalmic suspension INSTILL 1 DROP IN BOTH EYES 3 TIMES DAILY FOR 3 TO 4 DAYS Active prednisoLONE acetate (Pred-Forte) 1 % ophthalmic suspension instill 1 drop IN THE LEFT EYE FOUR TIMES DAILY FOR 7 DAYS --SHAKE WELL BEFORE USE-- Active Lifitegrast (Xiidra) 5 % solution INSTILL 1 DROP IN EACH EYE TWICE DAILY Active fluticasone (Flonase Sensimist) 27.5 MCG/SPRAY nasal spray SHAKE LIQUID AND USE 2 SPRAYS IN EACH NOSTRIL DAILY Active lidocaine (Lidoderm) 5 % patch 4 Active atorvastatin (Lipitor) 10 MG tablet Take 1 tablet by mouth nightly. Active minoxidil (Loniten) 10 MG tablet Take 1 tablet by mouth daily. Active morphine 20 MG/ML concentrated solution Take 0.5 mL by mouth. Active modafinil (Provigil) 200 MG tablet 4 Active Active Problems Problem Noted Date Diagnosed Date Meningioma 04/24/2025 Encounters Date Type Department Care Team Description 04/26/2025 9:00 AM EDT Consult [facility] [address] [place] [address] Tejas Garcia MD Meningioma (CMS/HCC) (Primary Dx) 04/26/2025 Orders Only [facility] [address] [place] [address] Tejas Garcia MD Meningioma (CMS/HCC) (Primary Dx) 04/26/2025 Travel from Last 3 Months Social History Tobacco Use Types Packs/Day Years Used Date Smoking Tobacco: Never Smokeless Tobacco: Never Tobacco Cessation:Counseling Given: Not Answered Alcohol Use Standard Drinks/Week Comments Never 0 (1 standard drink = 0.6 oz pur e alcohol) Comments Unknown Sex and Gender Information Value Date Recorded Sex Assigned at Not on file Legal Sex Female 8:34 PM EDT Gender Identity Not on file Sexual Orientation Not on file Last Filed Vital Signs Vital Sign Reading Time Taken Comments Blood Pressure 101/71 04/26/2025 8:50 AM EDT Pulse - - Temperature - - Respiratory Rate - - Oxygen Saturation - - Inhaled Oxygen Concentration - - Weight 56.2 kg (123 lb 14.4 oz) 04/26/2025 8:50 AM EDT Height 154.9 cm (5' 1 ) 04/26/2025 8:50 AM EDT Body Mass Index 23.41 04/26/2025 8:50 AM EDT Plan of Treatment Health Maintenance Due Date Last Done Comments [facility]-Depression Screening 1974 [facility]-/Child/Adol SDOH Screenings 1974 [facility]- SDOH Screenings 1992 [facility]-Adult SDOH Screenings 1992 [facility]-Hepatitis B Vaccines (1 of 3 - 19+ 3-dose series) 1993 [facility]-Pap Smear 1995 [facility]-Cervical Cancer Screening 2004 [facility]-HPV/Cotest 2004 CT Colonography 2019 Colonoscopy 2019 FIT-DNA 2019 FIT 2019 FOBT 2019 Sigmoidoscopy 2019 [facility]-Colorectal Cancer Screening 2019 [facility]-Zoster Vaccines (2 of 2) 01/30/2025 12/05/2024 [id number] Vaccine (3 - season) 2025 02/28/2021, 02/07/2021 [facility]-Influenza Vaccine (#1) 2025 [facility]-Pneumococcal Vaccine: 50 + Years (2 of 2 - PPSV23) 12/05/2025 12/05/2024 [facility]-DTaP,Tdap,and Td Vaccine s (2 - Td or Tdap) 05/23/2032 05/23/2022 HPV Vaccines Aged Out No longer eligi ble based on patient's age to complete this topic [facility]-HIB Vaccines Aged Out No longer e ligible based on patient's age to complete this topic [facility]-Hepatitis A Vaccines Aged Out No longer eligible based on patient's age to complete this topic [facility]-IPV Vaccines Aged Out No longer e ligible based on patient's age to complete this topic [facility]-Rotavirus Vaccines Aged Out No lo nger eligible based on patient's age to complete this topic Insurance [facility] [employer] [facility] MEDICAID Care Teams Flux Mixer Relationship Specialty Start Date End Date Gita Rosales PA [address] [place] [address] PCP - General 10/16/24 Tejas Garcia MD [address] [place] [address] Surgeon Neurosurgery 04/26/25
--- OUTSIDE RECORDS SUMMARY | 2025-07-13 15:36 | XMS_ITS | Clinical Summary ---
Author Organization [facility] Address [address] [place] [address] Care Team Providers Care Aircraft Motor Mechanic Name Role Phone Gita Rosales Primary Care Provider [phone] Allergies No known active allergies Medications levothyroxine (SYNTHROID, LEVOTHROID) 25 MCG tablet Take 1 tablet by mouth Daily. 2 Active levocetirizine (XYZAL) 5 MG tablet Take 1 tablet by mouth Every Night. 2 Active amitriptyline (ELAVIL) 10 MG tablet Take 10 mg by mouth Every Night. 2 Active lidocaine (LIDODERM) 5 % Apply 1 patch topically to the appropriate area as directed Daily. 3 Active fluticasone (FLONASE) 50 MCG/ACT nasal spray into the nostril(s) as directed by provider. 3 Active morphine 20 MG/ML concentrated solution Take 10 mg by mouth Every 2 (Two) Hours As Needed for Severe Pain. Primary Medtronic pain pump Per pt, pain pump contains morphine, fentanyl and a numbing medication Active Antiseptic Skin Cleanser 4 % solution SHOWER EACH DAY WITH SOLUTION FOR 5 DAYS BEGINNING 5 DAYS BEFORE SURGERY 2 Active Active Problems Problem Noted Date Diagnosed Date End of battery life of intrathecal infusion pump 08/19/2022 Family History Medical History Relation Name Comments Anxiety disorder Daughter Summer Duran Mental illness Daughter Summer Duran Arthritis Father José Soriano Cancer Father José Soriano Cancer Maternal Grandmother Bo Cant re member first name. We always called her grandma Patrice Other Mother Lakisha Westbrook There is alot that I dont kniw about my family members medical history Vision loss Mother Lakisha Westbrook Macular Degen eration Anxiety disorder Sister Luba Khan Relation Name Status Comments Sobia Garzon Father José Soriano Maternal Grandmother Bo Mother Lakisha Westbrook Sister Luba Khan Social History Tobacco Use Types Packs/Day Years Used Date Smoking Tobacco: Former Cigarettes 2011 Smokeless Tobacco: Never Tobacco Cessation:Counseling Given: Not Answered Comments:Used to be a smoker. Now, only use electronic ones Alcohol Use Standard Drinks/Week Comments Never 0 (1 standard drink = 0.6 oz pur e alcohol) Abuse Screen Answer Date Recorded Unsafe at Home or Work/School Not on file Feels Threatened by Someone? Not on file Does Anyone Keep You from Co ntacting Others or Doint Things Outside the Home? Not on file 09/30/2023 Physical Sign of Abuse Present Not on file 1 12/01/2022 Housing Stability Answer Date Recorded Current Living Arrangements Not on file 09/17 Potentially Unsafe Housing Conditions Not on luis eduardo e 09/30/2023 Family and Community Support Answer Quan e Recorded Help with Day-to-Day Activities Not on file 07/26/2023 Lonely or Isolated Not on file 07/26/2023 Employment Answer Date Recorded Do you want help finding or keeping work or a karly b? Not on file 07/26/2023 Disabilities Answer Date Recorded Concentrating, Remembering, or Making Decisions Difficulty Not on file 09/30/2023 Doing Errands Independently Difficulty Not on fi le 09/30/2023 Education Answer Date Recorded Help with school or training? Not on file Preferred Language Not on file 07/26/2023 Comments No Sex and Gender Information Value Date Recorded Sex Assigned at Not on file Legal Sex Female 12:11 PM EDT Gender Identity Not on file Sexual Orientation Not on file Last Filed Vital Signs Vital Sign Reading Time Taken Comments Blood Pressure 124/78 09/28/2022 6:45 PM EST Pulse 80 09/28/2022 6:45 PM EST Temperature 36.7 C (98 F) 09/28/2022 6:30 PM EST Respiratory Rate 15 09/28/2022 6:45 PM EST Oxygen Saturation 100% 09/28/2022 6:45 PM EST Inhaled Oxygen Concentration - - Weight 62.1 kg (137 lb) 09/28/2022 1:22 PM EST Height 154.9 cm (5' 1 ) 09/28/2022 1:22 PM EST Body Mass Index 25.89 09/28/2022 1:22 PM EST Plan of Treatment Health Maintenance Due Date Last Done Comments Annual Gynecologic Pelvic and Breast Exam 1974 MAMMOGRAM 2014 COLOGUARD 2019 COLON CANCER SCREENING 5 YEAR SIGMOIDOSCOPY 2019 COLONOSCOPY 2019 [address] CANCER SCREENING 2019 CT COLONOGRAPHY 2019 FECAL OCCULT BLOOD TEST 2019 FIT Testing (1 year) 2019 ANNUAL PHYSICAL 08/19/2022 HEPATITIS C SCREENING 08/19/2022 Pneumococcal Vaccine 50+ (1 of 1 - PCV) 2024 ZOSTER VACCINE (1 of 2) 2024 INFLUENZA VACCINE 05/18/2025 TDAP/TD VACCINES (2 - Td or Tdap) 05/23/2032 022 Medical Devices Implanted Type Area Laryngologist Device Identifier Shelf Expiration Date Model / Serial / Lot Pump Neuro Program Synchromed2 Fltr 20ml - [id number] Implanted:Qty : 1 on 09/28/2022 by Rodolfo Shields MD at [facility] Implant N/A: Abdomen [employer] 02/29/2024 [id number] / / [id number] Pain Pump Pain Pump [employer] Insurance Care Teams Aircraft Motor Mechanic Relationship Specialty Start Date End Date Gita Rosales PA PCP - General Physician Emergency Veterinary Technician 07/27/22
--- NOTE | 2025-07-13 15:44 | XR_ITS ---
FINAL REPORT CLINICAL HISTORY: chest / back pain COMPARISON: 11/10/2021 FINDINGS: PA and lateral views of the chest were obtained. There has been interval placement of a cranial nerve stimulator. The cardiac and mediastinal silhouettes are within normal limits. The lungs are clear. There is no pleural effusion or pneumothorax. No acute osseous abnormality is identified. IMPRESSION: No radiographic evidence of acute cardiac or pulmonary disease. Reviewed, Interpreted and Dictated by Odalis Cordero MD Transcribed by Dahiana Perry Authenticated and [facility]
--- NOTE | 2025-07-13 15:44 | XR_ITS ---
FINAL REPORT CLINICAL HISTORY: pain x years // no known injury FINDINGS: AP and lateral views of the right foot were obtained. There is no prior exam for comparison. There is no acute fracture or dislocation. There is mild degenerative joint disease of the 1st MTP joint. On the frontal view, there is a punctate radiodensity between the 2nd and 3rd proximal phalanges which appears to be in or on the plantar soft tissues of the forefoot. Soft tissues are otherwise unremarkable. IMPRESSION: Mild degenerative changes. Possible foreign body. Reviewed, Interpreted and Dictated by Odalis Cordero MD Transcribed by Dahiana Perry Authenticated and [facility]
--- NOTE | 2025-07-13 15:45 | XR_ITS ---
FINAL REPORT CLINICAL HISTORY: pain x years // no known injury COMPARISON: 11/25/2021 FINDINGS: AP, lateral and oblique views of the right hand were obtained. There is no acute fracture or dislocation. The joint spaces are preserved. The soft tissues are normal. IMPRESSION: No acute osseous abnormality of the right hand. Reviewed, Interpreted and Dictated by Odalis Cordero MD Transcribed by Dahiana Perry Authenticated and [facility]
--- NOTE | 2025-07-13 15:45 | XR_ITS ---
FINAL REPORT CLINICAL HISTORY: pain x years -- no known injury FINDINGS: Two views of the left foot were obtained. There is no prior exam for comparison. There is no acute fracture or dislocation. The joint spaces are intact. There is no soft tissue abnormality. IMPRESSION: No acute osseous abnormality of the left foot. Reviewed, Interpreted and Dictated by Odalis Cordero MD Transcribed by Dahiana Perry Authenticated and [facility]
--- NOTE | 2025-07-13 15:45 | XR_ITS ---
FINAL REPORT CLINICAL HISTORY: pain x years COMPARISON: 11/25/2021 FINDINGS: AP, oblique, and lateral views of the left hand were obtained. There is no acute fracture of the left hand. 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 The soft tissues are normal. IMPRESSION: Mild degenerative disease without acute osseous abnormality of the left hand. Reviewed, Interpreted and Dictated by Odalis Cordero MD Transcribed by Dahiana Perry Authenticated and . [facility]
--- NOTE | 2025-07-13 15:46 | XR_ITS ---
FINAL REPORT CLINICAL HISTORY: pain x years FINDINGS: SACROILIAC JOINTS SERIES Three views were obtained. There is no prior exam for comparison. There is no acute fracture or dislocation. 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 No ankylosis. No evidence of erosions. IMPRESSION: Mild degenerative change without acute osseous abnormality of the SI joints. Reviewed, Interpreted and Dictated by Odalis Cordero MD Transcribed by Dahiana Perry Authenticated and [facility]
--- NOTE | 2025-07-13 15:47 | XR_ITS ---
FINAL REPORT CLINICAL HISTORY: back pain x years FINDINGS: AP and lateral views of the lumbar spine were obtained. There is no prior exam for comparison. There are postoperative changes at L5-S1. There is no acute fracture or acute malalignment. Vertebral body height is preserved. Mild degenerative disc disease is noted. There is a pain pump with a reservoir projected over the left pelvis.. IMPRESSION: Degenerative and postoperative changes without acute osseous abnormality of the lumbar spine. Reviewed, Interpreted and Dictated by Odalis Cordero MD Transcribed by Dahiana Perry Authenticated and . [facility]
== END 2025-07-13 23:59 | disposition home or self-care (01) ==
LOC: RAD 15:34
PROVIDERS: PCP Physician Assistant; Visit Provider Internal Medicine Rheumatology
DX: Z01.89 Encounter for other specified special examinations (principal); M47.816 Spondylosis without myelopathy or radiculopathy, lumbar region; M46.1 Sacroiliitis, not elsewhere classified; M19.042 Primary osteoarthritis, left hand; M19.071 Primary osteoarthritis, right ankle and foot; R93.6 Abnormal findings on diagnostic imaging of limbs; M47.812 Spondylosis without myelopathy or radiculopathy, cervical region; R76.8 Other specified abnormal immunological findings in serum; E03.9 Hypothyroidism, unspecified; G47.419 Narcolepsy without cataplexy; M54.6 Pain in thoracic spine; Z96.82 Presence of neurostimulator; Z11.3 Encounter for screening for infections with a predominantly sexual mode of transmission
CPT/HCPCS: 71046; 72100; 72202; 73120; 73620